=== PATIENT | male | born 1960 | race Caucasian/White ===

== ENCOUNTER → 2017-09-16 07:59 | Outpatient (POV) | payer BC, SELFPAY | PROVIDERS: Family Provider Family Medicine; Visit Provider Physician Assistant | DX: Z00.00 Encounter for general adult medical examination without abnormal findings (principal) ==

== ENCOUNTER → 2017-10-14 08:12 | Outpatient (POV) | payer BC, SELFPAY | PROVIDERS: Family Provider Family Medicine; Visit Provider Physician Assistant | DX: Z00.00 Encounter for general adult medical examination without abnormal findings (principal) ==

== ENCOUNTER → 2018-02-17 09:42 | Outpatient (POV) | payer BC, SELFPAY | PROVIDERS: Visit Provider Physician Assistant | DX: Z00.00 Encounter for general adult medical examination without abnormal findings (principal) ==

== ENCOUNTER → 2018-04-08 08:25 | Outpatient (POV) | payer BC, SELFPAY | PROVIDERS: Visit Provider Dermatology | DX: Z00.00 Encounter for general adult medical examination without abnormal findings (principal) ==

== ENCOUNTER 2018-05-27 00:48 | Observation (INO) ==
[2018-05-27 01:22] LABS: Basophils # 0.1 K/mm3 (0-0.2); Basophils % 0.6 % (0.1-2.0); Eosinophils # 0.2 K/mm3 (0.0-0.4); Eosinophils % 1.5 % (0.1-12.0); Hematocrit 43.8 % (42.0-52.0); Hemoglobin 14.6 g/dL (14.1-18.0); Lymphocytes # 3.3 K/mm3 (0.7-4.5); Lymphocytes % 33.7 % (10-50); Mean Corpuscular HGB Conc 33.3 g/dL (31.8-35.4); Mean Corpuscular Hemoglobin 29.2 pg (27.0-31.2); Mean Corpuscular Volume 87.6 fl (80-94); Mean Platelet Volume 8.6 fl (7.4-10.4); Monocytes # 0.5 K/mm3 (0.1-1.0); Monocytes % 4.8 % (1.7-9.3); Neutrophils # 5.9 K/mm3 (1.8-7.8); Neutrophils % 59.4 % (37.0-80.0); Platelet Count 210 K/mm3 (142-424); Red Cell Distribution Width 13.9 % (11.5-17.5); White Blood Count 9.9 K/mm3 (4.8-10.8)
--- NOTE | 2018-05-27 01:37 | Emergency Department Note ---
ED Disposition Clinical Impression: Chest pain Qualifiers: Chest pain type: precordial pain Qualified Code(s): R07.2 - Precordial pain Disposition: Admitted as Observation Condition on Discharge: Good Referrals: Provider,Referral, [Primary Care Provider] - - Critical Care Critical Care Time: No Attestation: On 05/27/18, the high probability of a clinically significant, sudden or life threatening deterioration of the following system(s) required my full and direct attention, intervention and personal management. The time I documented below is in addition to time spent performing reported procedures but includes the following listed in this critical care notation. Medical Decision Making - Medical Records Medical records reviewed: Yes: I reviewed the patient's medical records. - Sammy Inquiry Pt receiving controlled substance: No Vital Signs: 05/27/18 00:48 05/27/18 01:44 Temperature 98.4 F Temperature Source Oral Pulse Rate [Right Radial] 78 71 Respiratory Rate 16 20 Blood Pressure [Right Arm] 191/119 H 143/87 H Blood Pressure Mean [Right Arm] 143 105 02 Sat by Pulse Oximetry 100 96 - Lab Data Lab results reviewed: Yes: I reviewed the patient's lab results. Lab Results 05/27/18 00:55: WBC 9.9, RBC 5.00, Hgb 14.6, Hct 43.8, MCV 87.6, MCH 29.2, MCHC 33.3, RDW 13.9, Plt Count 210, MPV 8.6, Neut % (Auto) 59.4, Lymph % (Auto) 33.7, [place] % (Auto) 4.8, Eos % (Auto) 1.5, Baso % (Auto) 0.6, Neut # (Auto) 5.9, Lymph # (Auto) 3.3, [place] # (Auto) 0.5, Eos # (Auto) 0.2, Baso # (Auto) 0.1 05/27/18 00:55: Sodium 140, Potassium 3.7, Chloride 103, Carbon Dioxide 27, Anion Gap 13.7, BUN 11, Creatinine 0.91, Estimated Creat Clear 109, Estimated GFR 86, Est GFR ( Amer) 105, Glucose 122 H, Calcium 8.6, Troponin I < 0.02 Result diagrams: 05/27/18 00:55 05/27/18 00:55 Orders (Tests/Meds): ED MEDICATIONS Discontinued Medications Generic Name Dose Route Start Last Admin Trade Name Antonio PRN Reason Stop Dose Admin Aspirin 324 mg 05/27/18 00:54 05/27/18 01:01 Aspirin 81mg Chewable Tablet PO 05/27/18 00:55 324 mg ONCE ONE Administration Nitroglycerin 0.4 mg 05/27/18 00:54 05/27/18 01:01 Nitrostat 0.4mg Sl Tablet SL 05/27/18 00:55 0.4 mg ONCE ONE Administration ORDERS Category Date Time Status XR chest 2V Stat Exams 05/27/18 00:54 Taken - Radiology Data #1 Image(s): Chest Image Reviewed: Yes I reviewed the patient's radiology image Preliminary Findings: Normal/NAD - ECG Data Tracing #1 I reviewed this ECG and interpreted as documented below: Normal Sinus Rhythm: Yes Ischemic changes: non-specific ST-T wave changes - Physician Consults Physician Consulted: lex Reason -: Admission Chest Pain HPI - General Chief Complaint: Chest Pain Stated Complaint: chest pain Time Seen by Provider: 05/27/18 00:50 Mode of Arrival: Family Vehicle Source of Information: Patient, Spouse, Medical Record Limitations: No Limitations Description of Symptoms (Recalled from ER Triage Doc. by RN): pt states he has had abd discomfort for the past 2 days. pt states that he thought he had "gas." pt states that tonight he began having chest pain that radiates into his left arm and into his back. - History of Present Illness HPI narrative: pt with acute onset of lt upper ext pain tonight - no def chest pain - lasting few hrs - no known ht dis MD complaint: chest pain indicative of cardiac Onset (ago): hour(s) Duration: now resolved Activity at onset: during rest Pain location: left chest Severity: moderate Quality: heaviness Risk Factors for CAD: Hypertension, Family Hx of CAD Treatments prior to or on arrival for Cardiac Chest Pain: none - MAO Score Non-Stemi Age of patient: Less than 65 yrs Number of risk factors for CAD: Presence of 3 or more Prior coronary artery stenosis(seen in coronary angiography): Less than 50% ST-Segment deviation on ECG (more than 1 min): Absent Prior aspirin intake: No ASA in the last 7 days Severe anginal chest pain: No or one episode in last 24 hours Elevated cardiac markers(CK-MB or troponin): Absent Non-Stemi Risk Score: 1 - Related Data Home Medications Medication Instructions Recorded Confirmed Atorvastatin Calcium [Atorvastatin 40 mg PO DAILY 05/27/18 05/27/18 40mg Tab] Allergies Allergy/AdvReac Type Severity Reaction Status Date / Time From REGLAN Allergy Unknown BURNING Uncoded 06/18/17 14:26 UP,SKIN CRAWLING,ANXIETY ATTACK SULFA (sulfonamide) Allergy Unknown Uncoded 06/18/17 14:26 [facility] History I have reviewed the patient's past medical history: Yes Medical History: Denies:: Cancer, Diabetes Mellitus Type 1, Diabetes Mellitus Type 2, MRSA Laterality Cases: Bilateral: Tonsillectomy Amputation: No - Social History Smoking Status: Never smoker Alcohol Intake: never - Psychiatric History Expresses thoughts of harming self/others: None Suicide Plan Description: No Plan ROS Obtained: Yes All systems reviewed & no additional complaints - Constitutional Constitutional: Denies fever(s) - Eyes Eyes: Denies blurry vision - ENT Ears, Nose, Mouth, and Throat: Denies sore throat - Cardiovascular Cardiovascular: Reports chest pain - Respiratory Respiratory: No cough - Gastrointestinal Gastrointestingal: Reports: belching. Denies: abdominal pain - Genitourinary Male Genitourinary: Denies hematuria - Musculoskeletal Musculoskeletal: Denies joint pain - Integumentary/Breasts Skin/Breast: Denies rash - Neurologic Neurologic: Denies seizure-like activity Physical Exam - General General appearance: alert - Head Head exam: normocephalic - Eye Eye exam: Present: PERRL, EOMI - ENT ENT exam: Present: mucous membranes moist - Neck Neck exam: Present: trachea midline - Respiratory Respiratory exam: Absent: respiratory distress - Cardiovascular Cardiovascular exam: Present: regular rate, systolic murmur - Abdominal Exam Abdominal exam: Present: soft - Extremities Exam Extremities exam: Absent: calf tenderness - Neurological Exam Neurological exam: Present: alert, oriented X3, CN II-XII intact - Psychiatric Psychiatric exam: Present: normal affect - Skin Skin exam: Absent: rash
[2018-05-27 01:47] LABS: Anion Gap 13.7 mEq/L (5-15); Blood Urea Nitrogen 11 mg/dL (7-18); Calcium 8.6 mg/dL (8.5-10.1); Carbon Dioxide 27 mmol/L (21.0-32.0); Chloride 103 mmol/L (98-107); Glucose 122 mg/dL (74-106); Potassium 3.7 mmoL/L (3.5-5.1); Sodium 140 mmol/L (136-145)
[2018-05-27 06:01] LABS: Basophils % 0.4 % (0.1-2.0); Eosinophils # 0.1 K/mm3 (0.0-0.4); Eosinophils % 1.5 % (0.1-12.0); Hematocrit 41.7 % (42.0-52.0); Hemoglobin 13.8 g/dL (14.1-18.0); Lymphocytes # 2.8 K/mm3 (0.7-4.5); Lymphocytes % 35.9 % (10-50); Mean Corpuscular Hemoglobin 28.9 pg (27.0-31.2); Mean Corpuscular Volume 87.6 fl (80-94); Mean Platelet Volume 8.5 fl (7.4-10.4); Monocytes # 0.4 K/mm3 (0.1-1.0); Monocytes % 4.5 % (1.7-9.3); Neutrophils # 4.5 K/mm3 (1.8-7.8); Neutrophils % 57.8 % (37.0-80.0); Platelet Count 188 K/mm3 (142-424); Red Blood Count 4.76 M/mm3 (4.60-6.20); Red Cell Distribution Width 13.7 % (11.5-17.5); White Blood Count 7.8 K/mm3 (4.8-10.8)
[2018-05-27 06:16] LABS: Anion Gap 11.1 mEq/L (5-15); Calcium 8.6 mg/dL (8.5-10.1); Chol/HDL Ratio 3.2 (1-3.5); Potassium 4.1 mmoL/L (3.5-5.1)
--- NOTE | 2018-05-27 07:10 | Pharmacy Consult Notes ---
[facility] Pharmacy VTE Monitoring - Patient Demographics Admission date: 05/27/18 Report Date: 05/27/18 Time: 07:10 Allergies/Adverse Reactions: Patient Allergies From REGLAN Allergy (Unknown, Uncoded 06/18/17 14:26) BURNING UP,SKIN CRAWLING,ANXIETY ATTACK SULFA (sulfonamide) Allergy (Unknown, Uncoded 06/18/17 14:26) Height: 1.7 m Weight: 81.647 kg Patient Problems: Current Active Problems Chest pain (Acute) - VTE Risk Labs: VTE Related Lab Results Hgb 13.8 g/dL (14.1-18.0) L 05/27/18 05:35 Hct 41.7 % (42.0-52.0) L 05/27/18 05:35 Plt Count 188 K/mm3 (142-424) 05/27/18 05:35 BUN 10 mg/dL (7-18) 05/27/18 05:35 Creatinine 0.85 mg/dL (0.70-1.30) 05/27/18 05:35 Estimated Creat Clear 113 mL/min (50-200) 05/27/18 05:35 Was VTE Risk Assessment Performed: Yes VTE Score: 3 VTE Risk Level: Low Risk - Prophylaxis VTE Prophylaxis Ordered?: Yes Types of VTE Prophylaxis: TEDS Knee High Location of Applied Device: Bilateral Lower Extremeties - VTE Diagnosis Confirmed Treatment or plan recommended: Continue Current Treatment
--- NOTE | 2018-05-27 08:13 | History & Physical Report ---
*Admission Date: 05/27/18 <Bea Nelson - 05/27/18 08:13> *Chief complaint: Chest pain <Bea Nelson - 05/27/18 08:13> *History of present illness: Mr. Chen is a 57-year-old male with a history of diverticulosis with hemicolectomy, prostatitis, and hyperlipidemia who presented to [facility] emergency after experiencing left anterior chest discomfort radiating down the left arm. He describes starting to not feel well Thanks day with increase in gas and bloating. His bowels did move and he was able to pass gas and then did feel better the following days. On 05/24/2018 began to feel worse when his bowels would not move. This progressed the following day after eating spaghetti. By 05/26/2018 his bowels had moved and he did feel better. Last p.m. the bloating increase pushing up on the left side of his chest wall and into his chest and radiating down to the arm. At this time he decided to come to the emergency for evaluation. In the emergency room his blood pressure was quite elevated. After application of Nitropaste the blood pressure did improve and his bowels did move. He began to feel better. He was admitted for further evaluation and treatment with a cardiology consult. This a.m. patient does feel better. His bowels have moved several times and he continues to pass flatus with frequent belching. He has had no further left anterior chest discomfort or arm pain. He denies shortness of breath and palpitations. He has had no nausea or vomiting. He denies fever or any upper respiratory signs or symptoms. Cardiology has seen patient. Nitropaste was removed. He will have a stress test today. <Bea Nelson - 05/27/18 09:27> [facility] History Medical History: Reports:: Gastroesophageal Reflux Disease(GERD) Denies:: Atherosclerotic Heart Disease, Cancer, Chronic Obstructive Pulmonary Disease (COPD), Coronary Artery Disease, Cerebrovascular Accident, Diabetes Mellitus Type 1, Diabetes Mellitus Type 2, MRSA, Seizures <Bea Nelson - 05/27/18 09:27> Other Medical History: Reports: Arthritis, Blood Transfusion Reaction. Denies: Hypothyroidism <Bea Nelson 05/27/18 09:27> Laterality Cases: Bilateral: Tonsillectomy <Bea Nelson 05/27/18 08:13> Other Surgeries: Yes: Colonoscopy, Colon Resection, Hernia Repair (x2) <Bea Nelson 05/27/18 08:13> Amputation: No <Bea Nelson 05/27/18 08:13> Comment: Left eye surgery 1972; Lasix surgery 1999; colonoscopy 2017 <Bea Nelson 05/27/18 09:27> - *Social History Educational Level: Completed Graduate School <Bea Nelson 05/27/18 08:13> Smoking Status: Never smoker <Bea Nelson 05/27/18 08:13> Alcohol Intake: former <Bea Nelson 05/27/18 08:13> Alcohol Intake Frequency:: holidays/special occasions only <Bea Nelson 05/27/18 08:13> Occupational Status: employed <Bea Nelson 05/27/18 08:13> Housing: house <Bea Nelson 05/27/18 08:13> Household Members: spouse <Bea Nelson 05/27/18 08:13> - Psychiatric History Expresses thoughts of harming self/others: None <Bea Nelson 05/27/18 08:13> Suicide Plan Description: No Plan <Bea Nelson 05/27/18 08:13> *Family Hx:: Cancer, Hypertension <Bea Nelson 05/27/18 08:13> Comment: Paternal grandfather had a blood clot <Bea Nelson 05/27/18 09:27> Review of Systems - Constitutional Denies fever(s), Denies headache(s), Denies lack of energy <OmarBea Kraus 05/27/18 09:27> - ENT Denies ear pain, Denies headache(s), Denies sore throat <OmarBea 05/27/18 09:27> - *Cardiovascular Reports chest pain, Denies shortness of breath, Denies leg swelling <OmarBea Nayana 05/27/18 09:27> - *Respiratory Denies chest congestion, Denies cough, Denies shortness of breath <NelsonBea 05/27/18 09:27> - *Gastrointestinal Reports abdominal pain, Reports belching, Reports bloating, Reports change in jose wel habits, Reports constipation, Reports loose stools, Reports heartburn, Reports excessive passing of gas, Denies vomiting blood, Denies bright, red blood in stools, Denies black, tarry stools, Denies nausea, Denies vomiting <Bea Nelson 05/27/18 09:27> - *Genitourinary Denies difficulty urinating <NelsonBea - 05/27/18 09:27> - *Musculoskeletal Denies abnormal walking, Denies joint pain <NelsonBea 05/27/18 09:27> - *Neurologic Denies dizziness, Denies headache(s), Denies seizure-like activity <OmarBea 05/27/18 09:27> Meds Home Medications Medication Instructions Recorded Confirmed Type Atorvastatin Calcium [Atorvastatin 40 mg PO HS 05/27/18 05/27/18 History 40mg Tab] <Bhavik Saravia - 05/27/18 09:59> Allergies Allergy/AdvReac Type Severity Reaction Status Date / Time From REGLAN Allergy Unknown BURNING Uncoded 06/18/17 14:26 UP,SKIN CRAWLING,ANXIETY ATTACK SULFA (sulfonamide) Allergy Unknown Uncoded 06/18/17 14:26 <Bhavik Saravia - 05/27/18 09:59> Exam Vital signs and Labs for Last 24 Hours: Temp Pulse Resp BP Pulse Ox 97.4 F L 61 18 137/80 96 05/27/18 08:00 05/27/18 08:00 05/27/18 08:00 05/27/18 08:00 05/27/18 08:00 Laboratory Results - last 24 hr 05/27/18 00:55: WBC 9.9, RBC 5.00, Hgb 14.6, Hct 43.8, MCV 87.6, MCH 29.2, MCHC 33.3, RDW 13.9, Plt Count 210, MPV 8.6, Neut % (Auto) 59.4, Lymph % (Auto) 33.7, [place] % (Auto) 4.8, Eos % (Auto) 1.5, Baso % (Auto) 0.6, Neut # (Auto) 5.9, Lymph # (Auto) 3.3, [place] # (Auto) 0.5, Eos # (Auto) 0.2, Baso # (Auto) 0.1 05/27/18 00:55: Sodium 140, Potassium 3.7, Chloride 103, Carbon Dioxide 27, Anion Gap 13.7, BUN 11, Creatinine 0.91, Estimated Creat Clear 109, Estimated GFR 86, Est GFR ( Amer) 105, Glucose 122 H, Calcium 8.6, Troponin I < 0.02 05/27/18 05:35: Troponin I < 0.02 05/27/18 05:35: WBC 7.8, RBC 4.76, Hgb 13.8 L, Hct 41.7 L, MCV 87.6, MCH 28.9, MCHC 33.0, RDW 13.7, Plt Count 188, MPV 8.5, Neut % (Auto) 57.8, Lymph % (Auto) 35.9, [place] % (Auto) 4.5, Eos % (Auto) 1.5, Baso % (Auto) 0.4, Neut # (Auto) 4.5, Lymph # (Auto) 2.8, [place] # (Auto) 0.4, Eos # (Auto) 0.1, Baso # (Auto) 0.0 05/27/18 05:35: Sodium 141, Potassium 4.1, Chloride 105, Carbon Dioxide 29, Anion Gap 11.1, BUN 10, Creatinine 0.85, Estimated Creat Clear 113, Estimated GFR 94, Est GFR ( Amer) 113, Glucose 113 H, Calcium 8.6, Triglycerides 164, Cholesterol 113 L, LDL Cholesterol 45, VLDL Cholesterol 33, HDL Cholesterol 35, Cholesterol/HDL Ratio 3.2 05/27/18 08:30: Troponin I < 0.02 <Bhavik Saravia - 05/27/18 09:59> Temp Pulse Resp BP Pulse Ox 97.4 F L 60 18 140/77 96 05/27/18 03:00 05/27/18 03:13 05/27/18 03:00 05/27/18 03:00 05/27/18 03:30 Laboratory Results - last 24 hr 05/27/18 00:55: WBC 9.9, RBC 5.00, Hgb 14.6, Hct 43.8, MCV 87.6, MCH 29.2, MCHC 33.3, RDW 13.9, Plt Count 210, MPV 8.6, Neut % (Auto) 59.4, Lymph % (Auto) 33.7, [place] % (Auto) 4.8, Eos % (Auto) 1.5, Baso % (Auto) 0.6, Neut # (Auto) 5.9, Lymph # (Auto) 3.3, [place] # (Auto) 0.5, Eos # (Auto) 0.2, Baso # (Auto) 0.1 05/27/18 00:55: Sodium 140, Potassium 3.7, Chloride 103, Carbon Dioxide 27, Anion Gap 13.7, BUN 11, Creatinine 0.91, Estimated Creat Clear 109, Estimated GFR 86, Est GFR ( Amer) 105, Glucose 122 H, Calcium 8.6, Troponin I < 0.02 05/27/18 05:35: Troponin I < 0.02 05/27/18 05:35: WBC 7.8, RBC 4.76, Hgb 13.8 L, Hct 41.7 L, MCV 87.6, MCH 28.9, MCHC 33.0, RDW 13.7, Plt Count 188, MPV 8.5, Neut % (Auto) 57.8, Lymph % (Auto) 35.9, [place] % (Auto) 4.5, Eos % (Auto) 1.5, Baso % (Auto) 0.4, Neut # (Auto) 4.5, Lymph # (Auto) 2.8, [place] # (Auto) 0.4, Eos # (Auto) 0.1, Baso # (Auto) 0.0 05/27/18 05:35: Sodium 141, Potassium 4.1, Chloride 105, Carbon Dioxide 29, Anion Gap 11.1, BUN 10, Creatinine 0.85, Estimated Creat Clear 113, Estimated GFR 94, Est GFR ( Amer) 113, Glucose 113 H, Calcium 8.6, Triglycerides 164, Cholesterol 113 L, LDL Cholesterol 45, VLDL Cholesterol 33, HDL Cholesterol 35, Cholesterol/HDL Ratio 3.2 <Bea Nelson - 05/27/18 08:13> I & O for Last 24 hours: Intake & Output 05/24/18 05/25/18 05/26/18 05/27/18 11:59 11:59 11:59 11:59 Intake Total 0 / 0 Balance 0 / 0 Weight 180 lb <Bhavik Saravia - 05/27/18 09:59> Intake & Output 05/24/18 05/25/18 05/26/18 05/27/18 11:59 11:59 11:59 11:59 Weight 180 lb <Bea Nelson - 05/27/18 08:13> Radiology Reports for the Last 24 Hours: 05/27/2018 chest x-ray IMPRESSION: Right perihilar opacity which may be due to underlying infiltrate/pneumonia. Suggest follow-up until clear as a lung nodule could also cause this appearance Left lower lobe and perihilar atelectasis <Bea Nelson 05/27/18 09:27> - Constitutional no acute distress <Bea Nelson 05/27/18 09:27> Comments: Appears comfortable lying in bed <Bea Nelson 05/27/18 09:27> - *Routine HEENT Exam Head: Present: normocephalic, atraumatic <Bea Nelson 05/27/18 09:27> Eye: Present: PERRL. Absent: conjunctival icterus, scleral injection <Bea Nelson 05/27/18 09:27> ENT: Present: mucous membranes moist, oropharynx clear, nares patent <Bea Nelson 05/27/18 09:27> - *Routine Neck Exam Present: supple, full ROM. Absent: carotid bruit, lymphadenopathy, thyromegaly <Bea Nelson 05/27/18 09:27> - *Routine Respiratory Exam Present: CTA bilaterally (Anteriorly and posteriorly) <Bea Nelson 05/27/18 09:27> - *Routine Cardiovascular Exam Present: RRR <Bea Nelson 05/27/18 09:27> - *Routine Abdominal Exam Present: soft, tenderness, distended <Bea Nelson 05/27/18 09:27> Comments: Hyperactive bowel sounds <Bea Nelson 05/27/18 09:27> - *Routine Extremities Exam Absent: edema, calf tenderness <Bea Nelson 05/27/18 09:27> - *Routine Neurological Exam Present: alert, oriented X3 <Bea Nelson 05/27/18 09:27> Assessment and Plan (1) Chest pain Current visit: Yes Status: Acute Qualifiers: Chest pain type: precordial pain Qualified Code(s): R07.2 - Precordial pain Category: Medical Code(s): R07.9 - Chest pain, unspecified (2) Abdominal pain Current visit: Yes Status: Acute Category: Medical Code(s): R10.9 - Unspecified abdominal pain (3) Hyperlipidemia Current visit: Yes Status: Chronic Category: Medical Code(s): E78.5 - Hyperlipidemia, unspecified (4) Diverticulosis Current visit: Yes Status: Chronic Category: Medical Code(s): K57.90 - Diverticulosis of intestine, part unspecified, without perforation or abscess without bleeding <Bhavik Saravia 05/27/18 09:59> (1) Chest pain Current visit: Yes Status: Acute Qualifiers: Chest pain type: precordial pain Qualified Code(s): R07.2 - Precordial pain Category: Medical Code(s): R07.9 - Chest pain, unspecified (2) Abdominal pain Current visit: Yes Status: Acute Category: Medical Code(s): R10.9 - Unspecified abdominal pain (3) Hyperlipidemia Current visit: Yes Status: Chronic Category: Medical Code(s): E78.5 - Hyperlipidemia, unspecified (4) Diverticulosis Current visit: Yes Status: Chronic Category: Medical Code(s): K57.90 - Diverticulosis of intestine, part unspecified, without perforation or abscess without bleeding <Bea Nelson 05/27/18 09:08> - Assessment and plan all Dx Assessment and Plan for all problems:: Saw patient, agree with above note. <Bhavik Saravia 05/27/18 09:59> Cardiology has seen patient and will have a stress test today. <Bea Nelson 05/27/18 09:27>
--- NOTE | 2018-05-27 08:16 | Consult Report ---
Addendum entered and electronically signed by MARYLU Jackson 05/27/18 13:33: Pt exercised on a brooke protocol for just over 7 min to beyond target HR without chest pain or EKG changes. OK from a Cardiology standpoint for discharge home. Follow up in 2 wks. Original Note: History of Present Illness Consult date: 05/27/18 Requesting physician: Bhavik Saravia Consult reason: chest pain Chief complaint: Abdominal and chest pain, HTN Additional Medical History:: 1. History of partial colectomy secondary to diverticulosis 2. History of hyperlipidemia History of present illness: 57-year-old white male with history of partial colectomy secondary to diverticulosis and long-term short of hyperlipidemia admitted through the emergency department for increasing abdominal pain resulting in chest discomfort and left arm numbness. Patient has had recurrent abdominal discomfort since his colectomy in the past. However his usual remedies to alleviate the PIP of gas did not work resulting in increased anxiety and discomfort. Patient's blood pressure in the emerge department was noted to be 190/120. He was started on nitroglycerin paste and given nitroglycerin tablets start with with some improvement in blood pressure and discomfort. Patient relates about 2:30 this morning he began passing gas with significant improvement in symptoms. He denies any history of exertional chest discomfort, pressure or tightness. No previous cardiac history. Patient denies diabetes, treatment for hypertension or tobacco use. No significant family history of heart disease. EKG is sinus rhythm and normal. Troponins are returned normal. Cardiology consulted for evaluation recommendation. [facility] History Medical History: Denies:: Cancer, Diabetes Mellitus Type 1, Diabetes Mellitus Type 2, MRSA Other Medical History: Reports: Arthritis, Blood Transfusion Reaction Laterality Cases: Bilateral: Tonsillectomy Other Surgeries: Yes: Colonoscopy, Colon Resection, Hernia Repair (x2) Amputation: No - *Social History Educational Level: Completed Graduate School Smoking Status: Never smoker Alcohol Intake: former Alcohol Intake Frequency:: holidays/special occasions only Occupational Status: employed Housing: house Household Members: spouse - Psychiatric History Expresses thoughts of harming self/others: None Suicide Plan Description: No Plan *Family Hx:: Cancer, Hypertension Meds Home Medications Medication Instructions Recorded Confirmed Type Atorvastatin Calcium [Atorvastatin 40 mg PO HS 05/27/18 05/27/18 History 40mg Tab] Allergies Allergy/AdvReac Type Severity Reaction Status Date / Time From REGLAN Allergy Unknown BURNING Uncoded 06/18/17 14:26 UP,SKIN CRAWLING,ANXIETY ATTACK SULFA (sulfonamide) Allergy Unknown Uncoded 06/18/17 14:26 Review of Systems - *Cardiovascular Reports chest pain, Denies shortness of breath with activity - *Respiratory Denies shortness of breath with activity - *Gastrointestinal Reports abdominal pain, Reports belching, Reports bloating - *Musculoskeletal Denies joint pain - *Neurologic Denies seizure-like activity Exam Vital signs and Labs for Last 24 Hours: Temp Pulse Resp BP Pulse Ox 97.4 F L 60 18 140/77 96 05/27/18 03:00 05/27/18 03:13 05/27/18 03:00 05/27/18 03:00 05/27/18 03:30 Laboratory Results - last 24 hr 05/27/18 00:55: WBC 9.9, RBC 5.00, Hgb 14.6, Hct 43.8, MCV 87.6, MCH 29.2, MCHC 33.3, RDW 13.9, Plt Count 210, MPV 8.6, Neut % (Auto) 59.4, Lymph % (Auto) 33.7, [place] % (Auto) 4.8, Eos % (Auto) 1.5, Baso % (Auto) 0.6, Neut # (Auto) 5.9, Lymph # (Auto) 3.3, [place] # (Auto) 0.5, Eos # (Auto) 0.2, Baso # (Auto) 0.1 05/27/18 00:55: Sodium 140, Potassium 3.7, Chloride 103, Carbon Dioxide 27, Anion Gap 13.7, BUN 11, Creatinine 0.91, Estimated Creat Clear 109, Estimated GFR 86, Est GFR ( Amer) 105, Glucose 122 H, Calcium 8.6, Troponin I < 0.02 05/27/18 05:35: Troponin I < 0.02 05/27/18 05:35: WBC 7.8, RBC 4.76, Hgb 13.8 L, Hct 41.7 L, MCV 87.6, MCH 28.9, MCHC 33.0, RDW 13.7, Plt Count 188, MPV 8.5, Neut % (Auto) 57.8, Lymph % (Auto) 35.9, [place] % (Auto) 4.5, Eos % (Auto) 1.5, Baso % (Auto) 0.4, Neut # (Auto) 4.5, Lymph # (Auto) 2.8, [place] # (Auto) 0.4, Eos # (Auto) 0.1, Baso # (Auto) 0.0 05/27/18 05:35: Sodium 141, Potassium 4.1, Chloride 105, Carbon Dioxide 29, Anion Gap 11.1, BUN 10, Creatinine 0.85, Estimated Creat Clear 113, Estimated GFR 94, Est GFR ( Amer) 113, Glucose 113 H, Calcium 8.6, Triglycerides 164, Cholesterol 113 L, LDL Cholesterol 45, VLDL Cholesterol 33, HDL Cholesterol 35, Cholesterol/HDL Ratio 3.2 I & O for Last 24 hours: Intake & Output 05/24/18 05/25/18 05/26/18 05/27/18 11:59 11:59 11:59 11:59 Weight 180 lb - *Routine Neck Exam Present: supple. Absent: JVD, carotid bruit - *Routine Respiratory Exam Present: CTA bilaterally. Absent: accessory muscle use, rales, rhonchi, wheezes - *Routine Cardiovascular Exam Present: RRR. Absent: murmur, gallop, rubs - *Routine Abdominal Exam Present: soft. Absent: tenderness, distended, guarding - *Routine Extremities Exam Absent: edema, calf tenderness - *Routine Neurological Exam Present: alert, oriented X3, moving all extremities Assessment and Plan (1) Chest pain Current visit: Yes Status: Acute Qualifiers: Chest pain type: precordial pain Qualified Code(s): R07.2 - Precordial pain Category: Medical Code(s): R07.9 - Chest pain, unspecified (2) Hyperlipidemia Current visit: Yes Status: Acute Category: Medical Code(s): E78.5 - Hyperlipidemia, unspecified - Assessment and plan all Dx Assessment and Plan for all problems:: 1. Preliminary echocardiogram report shows normal left ventricular size and function with no significant valvular heart disease. Study was limited due to patient's claustrophobia and abdominal discomfort. 2. In light of the patient's normal troponins and normal EKG would recommend proceeding with a regular Brooke protocol treadmill today. If no ischemic changes then patient could be discharged home. We will also observe the patient's blood pressure during exercise and consider hypertensive treatment if needed.
--- NOTE | 2018-05-27 15:55 | Discharge Summary ---
General - General Admission date:: 05/27/18 Discharge date: 05/27/18 HPI HPI: Mr. Chen is a 57-year-old male with a history of diverticulosis with hemicolectomy, prostatitis, and hyperlipidemia who presented to [facility] emergency after experiencing left anterior chest discomfort radiating down the left arm. He describes starting to not feel well Thanks day with increase in gas and bloating. His bowels did move and he was able to pass gas and then did feel better the following days. On 05/24/2018 began to feel worse when his bowels would not move. This progressed the following day after eating spaghetti. By 05/26/2018 his bowels had moved and he did feel better. Last p.m. the bloating increase pushing up on the left side of his chest wall and into his chest and radiating down to the arm. At this time he decided to come to the emergency for evaluation. In the emergency room his blood pressure was quite elevated. After application of Nitropaste the blood pressure did improve and his bowels did move. He began to feel better. He was admitted for further evaluation and treatment with a cardiology consult. This a.m. patient does feel better. His bowels have moved several times and he continues to pass flatus with frequent belching. He has had no further left anterior chest discomfort or arm pain. He denies shortness of breath and palpitations. He has had no nausea or vomiting. He denies fever or any upper respiratory signs or symptoms. Cardiology has seen patient. Nitropaste was removed. He will have a stress test today. Hospital Course Hospital Course: The preliminary echocardiogram report showed a normal left ventricular size and function with no significant valvular heart disease. The patient exercised on a brooke protocol for just over 7 min to beyond target HR without chest pain or EKG changes. He was stable to be discharged home and will f/u in 2 weeks with cardiology. Objective Vital signs: Temp Pulse Resp BP Pulse Ox 98.5 F 69 16 136/82 99 05/27/18 11:55 05/27/18 11:55 05/27/18 11:55 05/27/18 11:55 05/27/18 11:55 Narrative: - Constitutional no acute distress Comments: Appears comfortable lying in bed - *Routine HEENT Exam Head: Present: normocephalic, atraumatic Eye: Present: PERRL. Absent: conjunctival icterus, scleral injection ENT: Present: mucous membranes moist, oropharynx clear, nares patent - *Routine Neck Exam Present: supple, full ROM. Absent: carotid bruit, lymphadenopathy, thyromegaly - *Routine Respiratory Exam Present: CTA bilaterally (Anteriorly and posteriorly) - *Routine Cardiovascular Exam Present: RRR - *Routine Abdominal Exam Present: soft, tenderness, distended Comments: Hyperactive bowel sounds - *Routine Extremities Exam Absent: edema, calf tenderness - *Routine Neurological Exam Present: alert, oriented X3 Results Labs on day of discharge: Labs from last 24 hours 05/27/18 05/27/18 05/27/18 08:30 05:35 05:35 WBC 7.8 RBC 4.76 Hgb 13.8 L Hct 41.7 L MCV 87.6 MCH 28.9 MCHC 33.0 RDW 13.7 Plt Count 188 MPV 8.5 Neut % (Auto) 57.8 Lymph % (Auto) 35.9 [place] % (Auto) 4.5 Eos % (Auto) 1.5 Baso % (Auto) 0.4 Neut # (Auto) 4.5 Lymph # (Auto) 2.8 [place] # (Auto) 0.4 Eos # (Auto) 0.1 Baso # (Auto) 0.0 Sodium 141 Potassium 4.1 Chloride 105 Carbon Dioxide 29 Anion Gap 11.1 BUN 10 Creatinine 0.85 Estimated Creat Clear 113 Estimated GFR 94 Est GFR ( Amer) 113 Glucose 113 H Calcium 8.6 Troponin I < 0.02 Triglycerides 164 Cholesterol 113 L LDL Cholesterol 45 VLDL Cholesterol 33 HDL Cholesterol 35 Cholesterol/HDL Ratio 3.2 05/27/18 05/27/18 05/27/18 05:35 00:55 00:55 WBC 9.9 RBC 5.00 Hgb 14.6 Hct 43.8 MCV 87.6 MCH 29.2 MCHC 33.3 RDW 13.9 Plt Count 210 MPV 8.6 Neut % (Auto) 59.4 Lymph % (Auto) 33.7 [place] % (Auto) 4.8 Eos % (Auto) 1.5 Baso % (Auto) 0.6 Neut # (Auto) 5.9 Lymph # (Auto) 3.3 [place] # (Auto) 0.5 Eos # (Auto) 0.2 Baso # (Auto) 0.1 Sodium 140 Potassium 3.7 Chloride 103 Carbon Dioxide 27 Anion Gap 13.7 BUN 11 Creatinine 0.91 Estimated Creat Clear 109 Estimated GFR 86 Est GFR ( Amer) 105 Glucose 122 H Calcium 8.6 Troponin I < 0.02 < 0.02 Triglycerides Cholesterol LDL Cholesterol VLDL Cholesterol HDL Cholesterol Cholesterol/HDL Ratio DS: Diagnosis - Discharge Diagnosis (1) Chest pain Status: Acute (2) Abdominal pain Status: Acute (3) Hyperlipidemia Status: Chronic (4) Diverticulosis Status: Chronic Discharge Plan - Patient Discharge Instructions ACTIVITY: Continue current activity DIET: continue same diet Additional Instructions: Nursing Diagnosis: Knowledge Deficit Disease/Condition Goal(s): Education of disease process Instruction(s): Follow provider plan/instructions (See attached discharge education) Follow/up with primary care provider as instructed in discharge packet Patient Instructions: DI for Chest Pain - Follow up Plan Follow up with: Bhavik Saravia MD [Primary Care Provider] - 1 week Disposition: Home, Self-Shelter Medications: Home Medications Medication Instructions Recorded Confirmed Type Atorvastatin Calcium [Atorvastatin 40 mg PO HS 05/27/18 05/27/18 History 40mg Tab] Prescriptions/Medication Reconciliation: New Polyethylene Glycol 3350 [Miralax Powder] 17 gm PO DAILY #512 gm Continue Atorvastatin Calcium [Atorvastatin 40mg Tab] 40 mg PO HS
--- NOTE | 2018-05-27 21:45 | Cardiology Report ---
PROCEDURE: 2-D M-mode and color Doppler study INDICATIONS FOR THE TEST: Chest pain + COPD Heart Murmur Tobacco Smoking Palpitations Fatigue Syncope Edema Hypertension Diabetes Mellitus Rheumatic Fever SOB DENG Obesity Hyperlipidemia+ Family History HD Additional History ANXIETY. PT REFUSED THE REST OF EXAM DUE TO ANXIETY PATIENT INFORMATION HEIGHT: 67 WEIGHT:185 GENDER: Male B/P:143/87 2-D/M-MODE INTERPRETATION: 2-D MEASUREMENTS OBSERVED VALUES IN CMS Right Ventricular Dimension (RVDd) 2.2 Interventricular Septum (Thickness)(IVsd) 1.2 Left Ventricular Internal Dimensions(LVIDd) 3.9 Left Ventricular Posterior Wall (Thickness)(LVPWd) 1.1 Aortic Root 3.0 Aortic Cusp Separation 2.0 Left Atrial Dimensions (LAD) 3.5 2D 1. Left atrium is mildly enlarged, left ventricle is normal size, there is mild concentric left ventricular hypertrophy, visually estimated ejection fraction of 55% with no regional wall motion abnormality. 2. The right atrium and right ventricle are normal size and contractility. 3. The aortic valve is minimally thickened and fibrosed, leaflet continue to display mobility. 4. The mitral and tricuspid valve is grossly normal. 5. The pulmonic valve is poorly visualized. 6. No significant pericardial effusion noted. DOPPLER INTERROGATION: Doppler interrogation of the aortic, mitral and tricuspid valvular presence of mild mitral and tricuspid regurgitation, tricuspid regurgitation jet velocity is inadequate for calculation of the right ventricular systolic pressure, grade 1 diastolic dysfunction seen without tissue Doppler evidence of raised left atrial pressure. CONCLUSION: 1. Mildly enlarged left atrium, normal left ventricular size, mild concentric left ventricular hypertrophy, visually estimated ejection fraction 55% with no regional wall motion abnormality, grade 1 diastolic dysfunction seen without tissue Doppler evidence of raised left atrial pressure. 2. Mild mitral and tricuspid regurgitation 3. No significant pericardial effusion noted.
== END 2018-05-27 13:20 | disposition home or self-care (01) ==
LOC: 2ND 00:48 → ER 00:48 → 2ND 03:00
PROVIDERS: ADMIT Family Medicine; ATTEND Family Medicine

== ENCOUNTER → 2021-07-11 10:55 | Outpatient (CLI) | payer BC, SELFPAY | PROVIDERS: Visit Provider Nurse Practitioner | DX: Z20.822 Contact with and (suspected) exposure to COVID-19 (principal) | CPT/HCPCS: C9803; U0003; U0005 ==

== ENCOUNTER → 2022-03-21 14:10 | Outpatient (CLI) | payer BC, SELFPAY ==
[2022-03-21 14:50] LABS: Basophils # 0.1 K/mm3 (0-0.2); Basophils % 1.3 % (0.1-2.0); Eosinophils # 0.4 K/mm3 (0.0-0.4); Eosinophils % 3.5 % (0.1-12.0); Hematocrit 46.5 % (42.0-52.0); Hemoglobin 15.2 g/dL (14.1-18.0); Lymphocytes # 1.7 K/mm3 (0.7-4.5); Mean Corpuscular HGB Conc 32.6 g/dL (31.8-35.4); Mean Corpuscular Hemoglobin 29.9 pg (27.0-31.2); Mean Corpuscular Volume 91.7 fl (80-94); Mean Platelet Volume 9.7 fl (7.4-10.4); Monocytes # 0.5 K/mm3 (0.1-1.0); Monocytes % 4.4 % (1.7-9.3); Neutrophils # 7.9 K/mm3 (1.8-7.8); Neutrophils % 74.9 % (37.0-80.0); Platelet Count 209 K/mm3 (142-424); Red Blood Count 5.07 M/mm3 (4.60-6.20); Red Cell Distribution Width 13.9 % (11.5-17.5); White Blood Count 10.6 K/mm3 (4.8-10.8)
== END ==
PROVIDERS: PCP Family Medicine; Visit Provider Nurse Practitioner Family
DX: Z20.822 Contact with and (suspected) exposure to COVID-19 (principal)
CPT/HCPCS: 36415; 85025; C9803; U0003; U0005

== ENCOUNTER → 2022-11-20 07:43 | Outpatient (CLI) | payer SELFPAY ==
--- NOTE | 2022-11-20 07:56 | CT_ITS ---
FINAL REPORT TECHNIQUE: Thin section axial images were obtained through the heart and coronary arteries per CT coronary calcium score protocol. This study was performed with techniques to keep radiation doses as low as reasonably achievable (ALARA). Individualized dose reduction techniques using automated exposure control or adjustment of mA and/or kV according to the patient's size were employed. CLINICAL HISTORY: SCREENING FINDINGS: On the axial images, there is calcification within the LAD. This gives a coronary artery calcium score of 17 based on the Agatston scale. This coronary calcium score places the patient within the 36th percentile based on age and gender. The heart is normal in size. There is no pleural or pericardial effusion. Limited evaluation of the lungs reveal no suspicious nodule. IMPRESSION: Coronary artery calcium score of 17 places patient in the 36th percentile based on age and gender. Reviewed, Interpreted and Dictated by Jeramie Covarrubias III, MD Transcribed by Bea Monten[place] Authenticated and [facility]
== END ==
PROVIDERS: PCP Family Medicine; Visit Provider Family Medicine
DX: Z13.6 Encounter for screening for cardiovascular disorders (principal)
CPT/HCPCS: 75571

== ENCOUNTER 2024-12-24 14:09 | Outpatient (CLI) | payer BC, SELFPAY ==
--- OUTSIDE RECORDS SUMMARY | 2023-12-19 05:00 | XMS_ITS ---
Author Organization [facility] Address [address] [place] [id number] Care Team Providers Care Refrigerator Assembler Name Role Phone Bhavik Saravia Primary Care Provider Allergies Allergen (clinical drug ingredient) Drug/Non Drug Allergy documented on EMR Reaction Allergy Type Onset Date Status Substance with sulfonamide structure and antibacterial mechanism of action (substance) Sulfa Antibiotics Unknown Drug Allergy Active Results Component Value Reference Range Notes Glucose (In-House) Reviewed date:12/20/2023 08:40:39 AM Interpretation:134 Performing Lab: Notes/Report: 134 blood glucose 134 74 - 106 mg/dL Glycohemoglobin A1c (in hous e) Reviewed date:12/20/2023 08:40:39 AM Interpretation:5.2 Normal Performing Lab: Notes/Report: 5.2 Normal glycohemoglobin 5.2% 5 - 6.5 % P-Comprehensive Metabolic Pa david (CMP) Reviewed date:12/20/2023 08:40:39 AM Interpretation:co2-21, gluc 122 Performing Lab: Notes/Report: Test performed by [employer], [employer] [facility] , [address], [place] [address] Dagoberto Moe MD, Gum Scoring Machine Operator CLIA: [id number] Sodium 138 135-145 mEq/L Potassium 4.2 3.5-5.3 mEq/L Chloride 106 97-108 mEq/L CO2 21 22-32 mEq/L Glucose 122 65-99 mg/dL BUN 13 8-23 mg/dL Creatinine 0.82 0.70-1.30 mg/dL Calcium 9.5 8.6-10.4 mg/dL eGFR by Creatinine 100 >59 mL/min/1.73m2 Protein 6.5 6.0-8.3 g/dL Albumin 4.4 3.5-5.3 g/dL Alkaline Phosphatase 88 40-129 IU/L ALT (SGPT) 25 <5-55 IU/L AST (SGOT) 19 <5-46 IU/L Bilirubin, Total 0.4 <0.2-1.2 mg/dL A/G Ratio 2.1 1.1-2.5 mg/dL P-Lipid Panel Reviewed date:12/20/2023 08:40:39 AM Interpretation:trigs 231, hdl 33 Performing Lab: Notes/Report: Test performed by [employer], [address] , [place] [address] Dagoberto Moe MD, Gum Scoring Machine Operator CLIA: [id number] Cholesterol 132 <200 mg/dL Triglycerides 231 <150 mg/dL HDL Cholesterol 33 >39 mg/dL Cholesterol / HDL Ratio 4.00 0.00-4.99 Ratio Non-HDL Cholesterol 99 <130 mg/dL LDL Cholesterol (Calculation) 53 <130 mg/dL LDL Cholesterol Levels* Less than 100 mg/dL Optimal 100 to 129 mg/dL Near Optimal/ Above Optimal 130 to 159 mg/dL Borderline High 160 to 189 mg/dL High 190 mg/dL and above Very High * Categories as recommended by the 2004 ATPIII guidelines LDL/HDL Ratio 1.6 <3.3 Ratio LDL Cholesterol Patient History Test Date: 11/08/2022 LDL Results: 68 Units: mg/dL % Change: - Test Date: 06/17/2023 LDL Results: 69 Units: mg/dL % Change: +1% Test Date: 12/19/2023 LDL Results: 53 Units: mg/dL % Change: -23% P-PSA Reviewed date:12/20/2023 08:40:39 AM Interpretation: Normal Performing Lab: Notes/Report: [facility] by [facility] , [place] [address] Dagoberto Moe MD, Gum Scoring Machine Operator CLIA: [id number] PSA 0.77 <4.00 ng/mL Please note this is an ultrasensitive PSA assay with a lower limit of detection of 0.014 ng/mL. This test is performed by the [employer] ECLIA methodology. Values obtained with different assay methods or kits cannot be directly compared. P-TSH reflex to FT4 Reviewed date:12/20/2023 08:40:39 AM Interpretation: Normal Performing Lab: Notes/Report: Test performed by [employer] [facility] , [place] [address] Dagoberto Moe MD, Gum Scoring Machine Operator CLIA: [id number] TSH reflex to FT4 2.30 0.43-5.25 mU/L P-Microalbumin/Creatinine, R andom Urine Sample Reviewed date:12/20/2023 08:40:39 AM Interpretation:satisfactory Performing Lab: Notes/Report: Test performed by [employer], [employer] [address] [place] [address] , [address], [place] [address] Dagoberto Moe MD, Gum Scoring Machine Operator CLIA: [id number] Albumin/Creatinine Ratio, Urine See Comment 0-30 ug/mg Unable to calculate Urine Albumin/Creatinine Ratio when urine creatinine or urine albumin fall outside established reportable range. Microalbumin, Urine, Random <0.3 Creatinine, Urine 132.1 REASON FOR VISIT 6 month checkup Medications Medication SIG (Take, Route, Frequency, Duration) Notes Start Date End Date Status Losartan Potassium 50 MG 1 tablet Orally Once a day; Duration: 90 days 12/20/2022 Active Omeprazole 20 MG 1 cap(s) orally once a day; Duration: 30 day(s) Active Lipitor 40 MG 1 tab(s) orally once a day (bedtime); Duration: 90 days Active Famotidine 20 MG 1 tab(s) orally once Active Claritin 10 MG 1 tablet Orally Once a day; Duration: 30 day(s) Active MiraLax 17 GM/SCOOP as directed Orally Active Tylenol Extra Strength 500 MG 2 tab(s) orally every 6 hours Active Ibuprofen 600 MG 1 tab(s) orally ever y 6 hours Active Vital Signs Blood pressure systolic 122 mm Hg 12/19/19 24 Blood pressure diastolic 80 mm Hg 024 Heart Rate 70 /min 12/19/2023 Height 68 in 12/19/2023 Weight 186.6 lbs 12/19/2023 BMI 28.37 kg/m2 12/19/2023 Encounters Encounter Location Date Provider Diagnosis [facility] [address] [facility] [address] [place], [place] [id number] 12/19/2023 Bhavik Bethel Primary hypertension I10 ; Mixed hyperlipidemia E78.2 ; Hypertriglyceridemia E78.1 ; Impaired fasting glucose R73.01 and Prostate cancer screening Z12.5 Assessments Encounter Date Diagnosis (ICD Code) Assessment Notes Treatment Notes Treatment Clinical Notes Section Notes 12/19/2023 Primary hypertension (ICD-10 - I10) 12/19/2023 Mixed hyperlipidemia (ICD-10 - E78.2) 12/19/2023 Hypertriglyceridemia (ICD-10 - E78.1) 12/19/2023 Impaired fasting glu cose (ICD-10 - R73.01) 12/19/2023 Prostate cancer screening (ICD-10 - Z12.5) Plan Of Treatment Medication Medication Name Sig Start Date Stop Date Notes Losartan Potassium 50 MG 1 tablet Orally Once a day; Duration: 90 days 12/20/2022 Lipitor 40 MG 1 tab(s) orally once a day (bedtime); Duration: 90 days Next Appt Details Follow Up: 6 Months, Reason: Provider Name:Bhavik Bahena ry, 06/21/2025 09:15:00 AM, [address], [address], [place], [place], [id number], Progress Notes * LEE CHENDOB:1960 ([age] yo M)Acc No.[id number]:12/19/2023 Progress Notes Patient: LEE TRINIDAD Provider: Alexandra Saravia M.D. :1960 A ge:63 Y S ex:Male Date:12/19/2023 Address:[address] [place] [address] , [place], [id number] Subjective: * Chief Complaints: * 1 . 6 month checkup. * HPI: C ardiology: 63 year old male presents with c/o Blood Pressure Elevated P t here for 6 mo f/u on hypertension, states he is doing well and does not have any concerns. c/o Hyperlipidemia p t is fasting today. * ROS: D ERMATOLOGY: no R heather. n o H angie. G ASTROENTEROLOGY: no N ausea. n o V omiting. U ROLOGY: no D ifficulty urinating. n o B lood in urine. * Medical History: H yperlipidemia, Hypertriglyceridemia, Prostatitis, Diverticulosis, Diverticulitis, Constipation, Impaired Fasting Glucose. * Surgical History: T onsillectomy 1968, LT Eye 1972, Bilateral Lasik Eye 1999, Hemicolectomy secondary to diverticular disease of colon 2010, Colonoscopy 2017. * Hospitalization/Major Diagno stic Procedure: D enies Past Hospitalization. * Family History: F ather: , lung CA. M other: alive 81 yrs. P aternal Grand Father: , blot clot. P aternal Grand Mother: alive. M aternal Grand Father: . M aternal Grand Mother: . P aternal uncle: CA. S iblings: diagnosed with Cancer. 2 brother(s) - healthy. 3 son(s) - healthy. . * Social History: C URRENT TOBACCO USE S moking Status: Patient does NOT smoke. C affeine: yes, frequency:daily-soda. Exercise: yes, walks. Home smoke detector use: yes. Marital Status: . 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 Past smoking status: no. Occup. exposure: none. Recreational drug use: no. Alcohol: no. Travel ouside [place]: no. * Medications: T aking Claritin 10 MG Tablet 1 tablet Orally Once a day , Taking MiraLax 17 GM/SCOOP Powder as directed Orally , Taking Tylenol Extra Strength 500 MG Tablet 2 tab(s) orally every 6 hours , Taking Ibuprofen 600 MG Tablet 1 tab(s) orally every 6 hours , Taking Famotidine 20 MG Tablet 1 tab(s) orally once , Taking Omeprazole 20 MG Capsule Delayed Release 1 cap(s) orally once a day , Taking Lipitor 40 MG Tablet 1 tab(s) orally once a day (bedtime) , Taking Losartan Potassium 50 MG Tablet 1 tablet Orally Once a day , Discontinued Cefdinir 300 MG Capsule 1 cap(s) Orally Two times a day , Discontinued Promethazine-DM 6.25-15 MG/5ML Syrup 5 ml as needed Orally every 6 hrs , Medication List reviewed and reconciled with the patient * Allergies: S ulfa Antibiotics. Objective: * Vitals: W t:186.6, Temp:98.1, BP:122/80, HR:70, Nurse:karson, Ht: 68, BMI:28.37. * Examination: C ardiology: General Appearance: p leasant, NAD. H eart sounds: R RR, normal S1, S2. L ungs: c lear, no rales or wheezes. E xtremities: n o leg edema. P eripheral pulses: 2 plus bilateral. Assessment: * Assessment: 1. P rimary hypertension - I10 (Primary) 2 . M ixed hyperlipidemia - E78.2? 3. H ypertriglyceridemia - E78.1 4 . I mpaired fasting glucose - R73.01 5 . P rostate cancer screening - Z12.5 Plan: * Treatment: Value Reference Range A /G Ratio 2.1 1.1-2.5 - mg/dL * A lbumin 4.4 3.5-5.3 - g/dL * A lkaline Phosphatase 88 40-129 - IU/L * A LT (SGPT) 25 <5-55 - IU/L * A ST (SGOT) 19 <5-46 - IU/L * B ilirubin, Total 0.4 <0.2-1.2 - mg/dL * B UN 13 8-23 - mg/dL * C alcium 9.5 8.6-10.4 - mg/dL * C hloride 106 97-108 - mEq/L * C O2 21 L 22-32 - mEq/L * C reatinine 0.82 0.70-1.30 - mg/dL * G lucose 122 H 65-99 - mg/dL * P otassium 4.2 3.5-5.3 - mEq/L * S odium 138 135-145 - mEq/L * P rotein 6.5 6.0-8.3 - g/dL * e GFR by Creatinine 100 >59 - mL/min/1.73m2 * Carine Bansal 12/20/2023 8:40: 32 AM >See phone encounter ?LAB: P-Microalbumin/Creatinine, Random Urine Sample (Collection Date & Time - 12/19/2023 08:25 AM)?satisfactory* Value Reference Range A lbumin/Creatinine Ratio, Urine See Comment L 0-30 - ug /mg * C reatinine, Urine 132.1 - mg/dL * M icroalbumin, Urine, Random <0.3 - mg/dL * Carine Bansal 12/20/2023 8:40: 32 AM >See phone encounter 2.?Mixed hyperlipidemia? Refill Lipitor Tablet, 40 MG, 1 tab(s), orally, once a day (bedtime), 90 days, 90, Refills 1.?LAB: P-Comprehensive Metabolic Panel (CMP) (Collection Date & Time - 12/19/2023 08:25 AM)?co2-21, gluc 122* Value Reference Range A /G Ratio 2.1 1.1-2.5 - mg/dL * A lbumin 4.4 3.5-5.3 - g/dL * A lkaline Phosphatase 88 40-129 - IU/L * A LT (SGPT) 25 <5-55 - IU/L * A ST (SGOT) 19 <5-46 - IU/L * B ilirubin, Total 0.4 <0.2-1.2 - mg/dL * B UN 13 8-23 - mg/dL * C alcium 9.5 8.6-10.4 - mg/dL * C hloride 106 97-108 - mEq/L * C O2 21 L 22-32 - mEq/L * C reatinine 0.82 0.70-1.30 - mg/dL * G lucose 122 H 65-99 - mg/dL * P otassium 4.2 3.5-5.3 - mEq/L * S odium 138 135-145 - mEq/L * P rotein 6.5 6.0-8.3 - g/dL * e GFR by Creatinine 100 >59 - mL/min/1.73m2 * Carine Bansal 12/20/2023 8:40: 32 AM >See phone encounter ?LAB: P-Lipid Panel (Collection Date & Time - 12/19/2023 08:25 AM)?trigs 231, hdl 33* Value Reference Range C holesterol / HDL Ratio 4.00 0.00-4.99 - Ratio * C holesterol 132 <200 - mg/dL * H DL Cholesterol 33 L >39 - mg/dL * L DL Cholesterol (Calculation) 53 <130 - mg/d L * L DL/HDL Ratio 1.6 <3.3 - Ratio * N on-HDL Cholesterol 99 <130 - mg/dL * T riglycerides 231 H <150 - mg/dL * Carine Bansal 12/20/2023 8:40: 32 AM >See phone encounter ?LAB: P-TSH reflex to FT4 (Collection Date & Time - 12/19/2023 08:25 AM)? Normal* Value Reference Range T SH reflex to FT4 2.30 0.43-5.25 - mU/L * RolfCarine 12/20/2023 8:40: 32 AM >See phone encounter 3.?Hypertriglyceridemia?LAB: P-Lipid Panel (Collection Date & Time - 12/19/2023 08:25 AM)?trigs 231, hdl 33* Value Reference Range C holesterol / HDL Ratio 4.00 0.00-4.99 - Ratio * C holesterol 132 <200 - mg/dL * H DL Cholesterol 33 L >39 - mg/dL * L DL Cholesterol (Calculation) 53 <130 - mg/d L * L DL/HDL Ratio 1.6 <3.3 - Ratio * N on-HDL Cholesterol 99 <130 - mg/dL * T riglycerides 231 H <150 - mg/dL * Carine Bansal 12/20/2023 8:40: 32 AM >See phone encounter 4.?Impaired fasting glucose?LAB: Glucose (In-House) (Collection Date & Time - 12/19/2023)?134* Value Reference Range b lood glucose 134 74 - 106 mg/dL * KartikRubia 12/19/2023 9:58:45 AM > Carine Bansal 12/20/2023 8:40:32 AM >See phone encounter ?LAB: Glycohemoglobin A1c (in house) (Collection Date & Time - 12/19/2023)? 5.2 Normal* Value Reference Range g lycohemoglobin 5.2% 5 - 6.5 % * Rubia Verdugo 12/19/2023 10:05:1 9 AM > Carine Bansal 12/20/2023 8:40:32 AM >See phone encounter 5.?Prostate cancer screening?LAB: P-PSA (Collection Date & Time - 12/19/2023 08:25 AM)?Normal* Value Reference Range P SA 0.77 <4.00 - ng/mL * Carine Bansal 12/20/2023 8:40: 32 AM >See phone encounter * Procedure Codes: 8 2950 GLUCOSE TEST, [address]9937 GLYCATED HEMOGLOBIN TEST, Modifiers: QW * Follow Up: 6 Months * Images: Billing Information: * Visit Code: 94151 Office Visit, Est Pt., Level 4. * Procedure Codes: 28218 GLUCOSE TEST. 29675 GLYCATED HEMOGLOBIN TEST. Modifiers: QW * Electronic signature of Blanca Saravia MD on 12/24/2024 at 02:13 PM EDT Sign off status: Pending * Provider: Alexandra Saravia M.D. Date: 0 12/19/2023 Generated for Sherri ashley/Reginog/eTransmitting on: 12/24/2024 02:13 PM EDT History and Physical Notes * HPI (History of Present Illness) Category Sub-Category Detail Notes Category Not es Cardiology Blood Pressure Elevated Pt here for 6 mo f/u on hypertension, states he is doing well and does not have any concerns Hyperlipidemia pt is fasting today Examination Category Sub-Category Detail Notes Category Not es Cardiology Lungs: clear, no rales or wheezes Heart sounds: RRR, normal S1, S2 Extremities: no leg edema Peripheral pulses: 2 plus bilateral General Appearance: pleasant, NAD
--- OUTSIDE RECORDS SUMMARY | 2024-06-18 05:15 | XMS_ITS ---
Author Organization [facility] Address [address] [place] [id number] Care Team Providers Care Switcher Name Role Phone Bhavik Saravia Primary Care Provider Allergies Allergen (clinical drug ingredient) Drug/Non Drug Allergy documented on EMR Reaction Allergy Type Onset Date Status Substance with sulfonamide structure and antibacterial mechanism of action (substance) Sulfa Antibiotics Unknown Drug Allergy Active Results Component Value Reference Range Notes Glucose (In-House) Reviewed date:06/19/2024 11:42:30 AM Interpretation:138 Performing Lab: Notes/Report: 138 blood glucose 138 74 - 106 mg/dL Glycohemoglobin A1c (in hous e) Reviewed date:06/19/2024 11:42:31 AM Interpretation:6 Performing Lab: Notes/Report: 6 glycohemoglobin 6.0% 5 - 6.5 % P-Comprehensive Metabolic Pa david (CMP) Reviewed date:06/19/2024 11:42:30 AM Interpretation:gluc 110 Performing Lab: Notes/Report: Test performed by [facility] , [address], [place] [address] Dagoberto Moe MD, Patient Service Coordinator CLIA: [id number] Sodium 140 135-145 mmol/L Potassium 4.6 3.5-5.3 mmol/L Chloride 104 97-108 mmol/L CO2 25 22-32 mmol/L Glucose 110 65-99 mg/dL BUN 14 8-23 mg/dL Creatinine 0.84 0.70-1.30 mg/dL Calcium 9.8 8.6-10.4 mg/dL eGFR by Creatinine 99 >59 mL/min/1.73m2 Protein 6.6 6.0-8.3 g/dL Albumin 4.5 3.5-5.3 g/dL Alkaline Phosphatase 88 40-129 IU/L ALT (SGPT) 21 <5-55 IU/L AST (SGOT) 18 <5-46 IU/L Bilirubin, Total 0.4 <0.2-1.2 mg/dL A/G Ratio 2.1 1.1-2.5 P-Lipid Panel Reviewed date:06/19/2024 11:42:30 AM Interpretation:trigs 255, hdl 36 Performing Lab: Notes/Report: Test performed by [facility], [address] , [address], [place] [address] Dagoberto Moe MD, Patient Service Coordinator CLIA: [id number] Cholesterol 126 <200 mg/dL Triglycerides 255 <150 mg/dL HDL Cholesterol 36 >39 mg/dL Cholesterol / HDL Ratio 3.50 0.00-4.99 Ratio Non-HDL Cholesterol 90 <130 mg/dL LDL Cholesterol (Calculation) 39 <130 mg/dL LDL Cholesterol Levels* Less than 100 mg/dL Optimal 100 to 129 mg/dL Near Optimal/ Above Optimal 130 to 159 mg/dL Borderline High 160 to 189 mg/dL High 190 mg/dL and above Very High * Categories as recommended by the 2004 ATPIII guidelines LDL/HDL Ratio 1.1 <3.3 Ratio LDL Cholesterol Patient History Test Date: 06/17/2023 LDL Results: 69 Units: mg/dL % Change: +1% Test Date: 12/19/2023 LDL Results: 53 Units: mg/dL % Change: -23% Test Date: 06/18/2024 LDL Results: 39 Units: mg/dL % Change: -26% P-Uric Acid Reviewed date:06/19/2024 11:42:30 AM Interpretation:Normal Performing Lab: Notes/Report: Test performed by [facility], [address] , [place] [address] Dagoberto Moe MD, Patient Service Coordinator CLIA: [id number] Uric Acid 4.8 3.4-8.0 mg/dL REASON FOR VISIT 6 mos checkup Medications Medication SIG (Take, Route, Frequency, Duration) Notes Start Date End Date Status MiraLax 17 GM/SCOOP as directed Orally Active Tylenol Extra Strength 500 MG 2 tab(s) orally every 6 hours Active Omeprazole 20 MG 1 cap(s) orally once a day Active Claritin 10 MG 1 tablet Orally Once a day; Duration: 30 day(s) Active Famotidine 20 MG 1 tab(s) orally once Active Losartan Potassium 50 MG 1 tablet Orally Once a day 12/20/2022 Active Lipitor 40 MG 1 tab(s) orally once a day (bedtime) Active Vital Signs Blood pressure systolic 120 mm Hg 06/18/20 24 Blood pressure diastolic 76 mm Hg 024 Heart Rate 76 /min 06/18/2024 Height 68 in 06/18/2024 Weight 183.2 lbs 06/18/2024 BMI 27.85 kg/m2 06/18/2024 Encounters Encounter Location Date Provider Diagnosis [facility] [address] [facility] [address] [place] [id number] 06/18/2024 Bhavik Saravia Primary hypertension I10 ; Mixed hyperlipidemia E78.2 ; Hypertriglyceridemia E78.1 ; Impaired fasting glucose R73.01 and Pain in toe of right foot M79.674 Assessments Encounter Date Diagnosis (ICD Code) Assessment Notes Treatment Notes Treatment Clinical Notes Section Notes 06/18/2024 Primary hypertension (ICD-10 - I10) 06/18/2024 Mixed hyperlipidemia (ICD-10 - E78.2) 06/18/2024 Hypertriglyceridemia (ICD-10 - E78.1) 06/18/2024 Impaired fasting glu cose (ICD-10 - R73.01) 06/18/2024 Pain in toe of right foot (ICD-10 - M79.674) Plan Of Treatment Medication Medication Name Sig Start Date Stop Date Notes Omeprazole 20 MG 1 cap(s) orally once a day Losartan Potassium 50 MG 1 tablet Orally Once a day 2022 Lipitor 40 MG 1 tab(s) orally once a day (bedtime) Next Appt Details Follow Up: 6 Months, Reason: Provider Name:Bhavik Bahena ry, 06/21/2025 09:15:00 AM, [address] [facility] [address] [facility], [address], [place], [id number], Progress Notes * LEE CHENDOB:1960 ([age] yo M)Acc No.[id number]:06/18/2024 Progress Notes Patient: LEE TRINIDAD Provider: Alexandra Saravia M.D. :1960 A ge:63 Y S ex:Male Date:06/18/2024 Address:[address] [id number] Subjective: * Chief Complaints: * 1 . 6 mos checkup. * HPI: C ardiology: 63 year old male presents with c/o Blood Pressure Elevated P t here for 6 mo f/u on hypertension, states he is doing well and does not have any concerns. c/o Hyperlipidemia P t is fasting today. * ROS: D ERMATOLOGY: no R heather. n o H angie. G ASTROENTEROLOGY: no N ausea. n o V omiting. M USCULOSKELETAL: Joint pain y es, o ccasionally has pain in his right great toe, worse at night, not with exertion, wonders if it could be gout. U ROLOGY: no D ifficulty urinating. n [...] cap(s) orally once a day , Taking Losartan Potassium 50 MG Tablet 1 tablet Orally Once a day , Taking Lipitor 40 MG Tablet 1 tab(s) orally once a day (bedtime) , Discontinued Ibuprofen 600 MG Tablet 1 tab(s) orally every 6 hours , Medication List reviewed and reconciled with the patient * Allergies: S ulfa Antibiotics. Objective: * Vitals: W t:183.2, Temp:97.8, BP:120/76, HR:76, Nurse:karson, Ht: 68, BMI:27.85. * Examination: C ardiology: General Appearance: p [...] fasting glucose - R73.01 5 . P ain in toe of right foot - M79.674 Plan: * Treatment: Value Reference Range A /G Ratio 2.1 1.1-2.5 - * A lbumin 4.5 3.5-5.3 - g/dL * A lkaline Phosphatase 88 40-129 - IU/L * A LT (SGPT) 21 <5-55 - IU/L * A ST (SGOT) 18 <5-46 - IU/L * B ilirubin, Total 0.4 <0.2-1.2 - mg/dL * B UN 14 8-23 - mg/dL * C alcium 9.8 8.6-10.4 - mg/dL * C hloride 104 97-108 - mmol/L * C O2 25 22-32 - mmol/L * C reatinine 0.84 0.70-1.30 - mg/dL * G lucose 110 H 65-99 - mg/dL * P otassium 4.6 3.5-5.3 - mmol/L * S odium 140 135-145 - mmol/L * P rotein 6.6 6.0-8.3 - g/dL * e GFR by Creatinine 99 >59 - mL/min/1.73m2 * Carine Bansal 06/19/2024 11:4 2:33 AM >See phone encounter 2.?Mixed hyperlipidemia? Continue Lipitor Tablet, 40 MG, 1 tab(s), orally, once a day (bedtime).?LAB: P-Comprehensive Metabolic Panel (CMP) (Collection Date & Time - 06/18/2024 08:36 AM)?gluc 110* Value Reference Range A /G Ratio 2.1 1.1-2.5 - * A lbumin 4.5 3.5-5.3 - g/dL * A lkaline Phosphatase 88 40-129 - IU/L * A LT (SGPT) 21 <5-55 - IU/L * A ST (SGOT) 18 <5-46 - IU/L * B ilirubin, Total 0.4 <0.2-1.2 - mg/dL * B UN 14 8-23 - mg/dL * C alcium 9.8 8.6-10.4 - mg/dL * C hloride 104 97-108 - mmol/L * C O2 25 22-32 - mmol/L * C reatinine 0.84 0.70-1.30 - mg/dL * G lucose 110 H 65-99 - mg/dL * P otassium 4.6 3.5-5.3 - mmol/L * S odium 140 135-145 - mmol/L * P rotein 6.6 6.0-8.3 - g/dL * e GFR by Creatinine 99 >59 - mL/min/1.73m2 * Carine Bansal 06/19/2024 11:4 2:33 AM >See phone encounter ?LAB: P-Lipid Panel (Collection Date & Time - 06/18/2024 08:36 AM)?trigs 255, hdl 36* Value Reference Range C holesterol / HDL Ratio 3.50 0.00-4.99 - Ratio * C holesterol 126 <200 - mg/dL * H DL Cholesterol 36 L >39 - mg/dL * L DL Cholesterol (Calculation) 39 <130 - mg/d L * L DL/HDL Ratio 1.1 <3.3 - Ratio * N on-HDL Cholesterol 90 <130 - mg/dL * T riglycerides 255 H <150 - mg/dL * Carine Bansal 06/19/2024 11:4 2:33 AM >See phone encounter 3.?Hypertriglyceridemia?LAB: P-Lipid Panel (Collection Date & Time - 06/18/2024 08:36 AM)?trigs 255, hdl 36* Value Reference Range C holesterol / HDL Ratio 3.50 0.00-4.99 - Ratio * C holesterol 126 <200 - mg/dL * H DL Cholesterol 36 L >39 - mg/dL * L DL Cholesterol (Calculation) 39 <130 - mg/d L * L DL/HDL Ratio 1.1 <3.3 - Ratio * N on-HDL Cholesterol 90 <130 - mg/dL * T riglycerides 255 H <150 - mg/dL * Carine Bansal 06/19/2024 11:4 2:33 AM >See phone encounter 4.?Impaired fasting glucose?LAB: Glucose (In-House) (Collection Date & Time - 06/18/2024)?138* Value Reference Range b lood glucose 138 74 - 106 mg/dL * Nydia Adair 06/18/2024 9: 55:49 AM > Carine Bansal 06/19/2024 11:42:33 AM >See phone encounter ?LAB: Glycohemoglobin A1c (in house) (Collection Date & Time - 06/18/2024)?6 * Value Reference Range g lycohemoglobin 6.0% 5 - 6.5 % * Nydia Adair 06/18/2024 9: 56:16 AM > Carine Bansal 06/19/2024 11:42:33 AM >See phone encounter 5.?Pain in toe of right foot?LAB: P-Uric Acid (Collection Date & Time - 06/18/2024 08:36 AM)?Normal* Value Reference Range U agata Acid 4.8 3.4-8.0 - mg/dL * Carine Bansal 06/19/2024 11:4 2:33 AM >See phone encounter 6.?Others? Continue Omeprazole Capsule Delayed Release, 20 MG, 1 cap(s), orally, once a day.?? * Procedure Codes: 8 2950 GLUCOSE TEST, 26990 GLYCATED HEMOGLOBIN TEST, Modifiers: QW * Follow Up: 6 Months * Images: Billing Information: * Visit Code: 21943 Office Visit, Est Pt., Level 4. * Procedure Codes: 29903 GLUCOSE TEST. 62526 GLYCATED HEMOGLOBIN TEST. Modifiers: QW * Electronic signature of Blanca Saravia MD on 12/24/2024 at 02:13 PM EDT Sign off status: Pending * Provider: Alexandra Saravia M.D. Date: 1 08/19/2023 Generated for Sherri ashley/Zulay/Roby on: 0 12/24/2024 02:13 PM EDT History and Physical Notes * HPI (History of Present Illness) Category Sub-Category Detail Notes Category Not es Cardiology Blood Pressure Elevated Pt here for 6 mo f/u on hypertension, states he is doing well and does not have any concerns Hyperlipidemia Pt is fasting today Examination Category Sub-Category Detail Notes Category Not es Cardiology Lungs: clear, no rales or wheezes Heart sounds: RRR, normal S1, S2 Extremities: no leg edema Peripheral pulses: 2 plus bilateral General Appearance: pleasant, NAD
--- OUTSIDE RECORDS SUMMARY | 2024-12-17 05:30 | XMS_ITS ---
Author Organization [facility] Address [address] [place] [id number] Care Team Providers Care Pizza Maker Name Role Phone Bhavik Saravia Primary Care Provider [phone] Allergies Allergen (clinical drug ingredient) Drug/Non Drug Allergy documented on EMR Reaction Allergy Type Onset Date Status Substance with sulfonamide structure and antibacterial mechanism of action (substance) Sulfa Antibiotics Unknown Drug Allergy Active Results Component Value Reference Range Notes Glucose (In-House) Reviewed date:12/21/2024 02:47:49 PM Interpretation:93 Performing Lab: Notes/Report: 93 blood glucose 93 74 - 106 mg/dL CBC Venipuncture (in house) Reviewed date:12/21/2024 02:47:49 PM Interpretation:Normal Performing Lab: Notes/Report: Normal wbc 6.3 3.5 - 10 lymph 29.4% 15 - 50 mid 5.8% 2 - 15 gran 64.8% 35 - 80 rbc 5.05 3.5 - 5.5 hgb 14.7 11.5 - 16.5 hct 44.7 35 - 55 mcv 88.5 75 - 100 mch 29.2 25 - 35 mchc 33.0 31 - 38 platlet 239 100 - 400 P-Comprehensive Metabolic Pa david (CMP) Reviewed date:12/21/2024 02:47:48 PM Interpretation:Normal Performing Lab: Notes/Report: Test performed by [facility], [place] [address] [place] [address] , [address], [place] [address] Dagoberto Moe MD, Insulation Technician CLIA: [id number] Sodium 139 135-145 mmol/L Potassium 4.5 3.5-5.3 mmol/L Chloride 102 97-108 mmol/L CO2 26 22-32 mmol/L Glucose 86 65-99 mg/dL BUN 13 8-23 mg/dL Creatinine 1.19 0.70-1.30 mg/dL Calcium 10.1 8.6-10.4 mg/dL eGFR by Creatinine 69 >59 mL/min/1.73m2 Protein 7.2 6.0-8.3 g/dL Albumin 4.8 3.5-5.3 g/dL Alkaline Phosphatase 52 40-129 IU/L ALT (SGPT) 33 <5-55 IU/L AST (SGOT) 24 <5-46 IU/L Bilirubin, Total 0.5 <0.2-1.2 mg/dL A/G Ratio 2.0 1.1-2.5 [facility] Reviewed date:12/21/2024 02:47:48 PM Interpretation:Normal Performing Lab: Notes/Report: Test performed by [facility] [address], [place] [address] Dagoberto Moe MD, Insulation Technician CLIA: [id number] Erythrocyte Sedimentation Rate (ESR), Automated 2 <21 mm/hr Rheumatoid Factor <10 <14.1 IU/mL C-Reactive Protein (CRP) 0.05 <0.50 mg/dL Antinuclear Antibodies (AILIN) Screen, Reflex AILIN 9 Panel Negative Negative This test is perform ed by Multiplex Bead Immunoassay methodology. Antinuclear Antibodies (AILIN) Result Note SEE COMMENT For positive Autoantibodies, please refer to the interpretive chart here: [email or web address] CCP Antibodies <0.5 <0.5-3.0 U/mL P-Hemoglobin A1C Reviewed date:12/21/2024 02:47:48 PM Interpretation:6.0 Performing Lab: Notes/Report: Test performed by [facility] [address] [place], [place] [address] [employer] [facility] [address], [place] [address] Dagoberto Moe MD, Insulation Technician CLIA: [id number] Hemoglobin A1C 6.0 <5.7 % The following HbA1c ranges recommended by the [place] [employer] (ADA) may be used as an aid in the diagnosis of diabetes mellitus. HbA1c Suggested Diagnosis >=6.5% Diabetic 5.7% - 6.4% Pre-Diabetic <5.7% Non-Diabetic P-Lipid Panel Reviewed date:12/21/2024 02:47:49 PM Interpretation:trigs 193, hdl 38, non-hdl 130 Performing Lab: Notes/Report: Test performed by [facility], [address] , [facility], [place] [address] Dagoberto Moe MD, Insulation Technician CLIA: [id number] Cholesterol 168 <200 mg/dL Triglycerides 193 <150 mg/dL HDL Cholesterol 38 >39 mg/dL Cholesterol / HDL Ratio 4.42 0.00-4.99 Ratio Non-HDL Cholesterol 130 <130 mg/dL LDL Cholesterol (Calculation) 91 <130 mg/dL LDL Cholesterol Levels* Less than 100 mg/dL Optimal 100 to 129 mg/dL Near Optimal/ Above Optimal 130 to 159 mg/dL Borderline High 160 to 189 mg/dL High 190 mg/dL and above Very High * Categories as recommended by the 2004 ATPIII guidelines LDL/HDL Ratio 2.4 <3.3 Ratio LDL Cholesterol Patient History Test Date: 12/19/2023 LDL Results: 53 Units: mg/dL % Change: -23% Test Date: 06/18/2024 LDL Results: 39 Units: mg/dL % Change: -26% Test Date: 12/17/2024 LDL Results: 91 Units: mg/dL % Change: +133% P-PSA Reviewed date:12/21/2024 02:47:49 PM Interpretation:Normal Performing Lab: Notes/Report: Test performed by [facility] [address] , [place] [address] Dagoberto Moe MD, Insulation Technician CLIA: [id number] PSA 0.91 <4.00 ng/mL Please note this is an ultrasensitive PSA assay with a lower limit of detection of 0.014 ng/mL. This test is performed by the Michael ECLIA methodology. Values obtained with different assay methods or kits cannot be directly compared. P-TSH reflex to FT4 Reviewed date:12/21/2024 02:47:49 PM Interpretation:Normal Performing Lab: Notes/Report: Test performed by [facility] [address] [place] [address] , [place] [address] Dagoberto Moe MD, Insulation Technician CLIA: [id number] TSH reflex to FT4 1.36 0.43-5.25 mU/L P-Microalbumin/Creatinine, R andom Urine Sample Reviewed date:12/21/2024 02:47:49 PM Interpretation:Normal Performing Lab: Notes/Report: Test performed by [facility] [address] [place] [address] , [address], [place] [address] Dagoberto Moe MD, Insulation Technician CLIA: [id number] Albumin/Creatinine Ratio, Urine <6.27 0-30 ug/mg Microalbumin, Urine, Random <0.3 Creatinine, Urine 47.8 Estimated Average Glucose Reviewed date:12/21/2024 02:47:49 PM Interpretation:Normal Performing Lab: Notes/Report: Test performed by [facility] [address] [place] [address] , [address], [place] [address] Dagoberto Moe MD, Insulation Technician CLIA: [id number] Estimated Average Glucose (eAG) 125 Estimated Average Glucose (eAG) is calculated using the equation eAG = (28.7 x HbA1c) - 46.7 based on the guidelines established by the ADA. If the patient has certain diseases including kidney disease, sickle cell anemia, thalassemia, or is taking medications such as dapsone, erythropoietin, or iron, eAG should not be evaluated. REASON FOR VISIT 6 months Medications Medication SIG (Take, Route, Frequency, Duration) Notes Start Date End Date Status Tylenol Extra Strength 500 MG 2 tab(s) orally every 6 hours Active MiraLax 17 GM/SCOOP as directed Orally Active Famotidine 20 MG 1 tab(s) orally once Active Claritin 10 MG 1 tablet Orally Once a day; Duration: 30 day(s) Active Fenofibrate 160 MG 1 tablet Orally Once a day; Duration: 90 days 06/19/2024 Active Omeprazole 20 MG 1 cap(s) orally once a day Active Losartan Potassium 50 mg TAKE ONE TABLET BY MOUTH EVERY DAY; Duration: 90 Active Problems Problem Type SNOMED Code ICD Code Onset Dates Problem Status W/U Status Risk Notes Problem Polyarthritis (M13.0) Active confirmed Vital Signs Blood pressure systolic 132 mm Hg 12/18/19 25 Blood pressure diastolic 74 mm Hg 025 Heart Rate 66 /min 12/17/2024 Height 68 in 12/17/2024 Weight 176 lbs 12/17/2024 BMI 26.76 kg/m2 12/17/2024 Encounters Encounter Location Date Provider Diagnosis [facility] [address] [place], [place] [id number] 12/17/2024 Bhavik Amity Primary hypertension I10 ; Mixed hyperlipidemia E78.2 ; Hypertriglyceridemia E78.1 ; Impaired fasting glucose R73.01 ; Polyarthritis M13.0 and Screening for prostate cancer Z12.5 Assessments Encounter Date Diagnosis (ICD Code) Assessment Notes Treatment Notes Treatment Clinical Notes Section Notes 12/17/2024 Primary hypertension (ICD-10 - I10) 12/17/2024 Mixed hyperlipidemia (ICD-10 - E78.2) 12/17/2024 Hypertriglyceridemia (ICD-10 - E78.1) 12/17/2024 Impaired fasting glu cose (ICD-10 - R73.01) 12/17/2024 Polyarthritis (ICD-1 0 - M13.0) 12/17/2024 Screening for prosta te cancer (ICD-10 - Z12.5) Plan Of Treatment Pending Test Test Name Order Date X ray : Hands, bilateral 12/17/2024 Next Appt Details Follow Up: 6 Months, Reason: Provider Name:Bhavik silva, 06/21/2025 09:15:00 AM, [address], [address], [place], [id number], Progress Notes * LEE CHENDOB:1960 ([age] yo M)Acc No.[id number]:12/17/2024 Progress Notes Patient: LEE TRINIDAD Provider: Alexandra Saravia M.D. :1960 A ge:64 Y S ex:Male Date:12/17/2024 Address:[address] [place] [address] [address] [place], [id number] Subjective: * Chief Complaints: * 1 . 6 months. * HPI: C ardiology: 64 year old male presents with c/o Blood Pressure Elevated P t here for 6 mo f/u on hypertension. c/o Hyperlipidemia P t is fasting today. D ermatology: c/o knot P t complains of tender knot on palm of rt hand.? R heumatology: c/o joint pain P t complains of multiple joint pain and is concerned he may have arthritis. Pt states it is painful to bend fingers and grasp things. * ROS: D ERMATOLOGY: no R heather. [...] ather: , lung CA. M other: alive 82 yrs. P aternal Grand Father: , blot clot. P aternal Grand Mother: alive. M aternal Grand Father: . M aternal Grand Mother: . P aternal uncle: [place]. S iblings: diagnosed with Cancer. 2 brother(s) - healthy. 3 son(s) - healthy. . * Social History: C URRENT TOBACCO USE: No . C affeine: yes, frequency:daily-soda. Exercise: yes, walks. [...] cap(s) orally once a day , Taking Fenofibrate 160 MG Tablet 1 tablet Orally Once a day , Taking Losartan Potassium 50 mg Tablet TAKE ONE TABLET BY MOUTH EVERY DAY , Discontinued Atorvastatin Calcium 40 mg Tablet TAKE ONE TABLET BY MOUTH AT BEDTIME , Medication List reviewed and reconciled with the patient * Allergies: S ulfa Antibiotics. Objective: * Vitals: W t: 176, Temp: 97.8, BP: 132/74, HR: 66, Nurse: karson/rosi, Ht: 68, BMI:26.76. * Examination: C ardiology: General Appearance: p [...] fasting glucose - R73.01 5 . P olyarthritis - M13.0 6 . S creening for prostate cancer - Z12.5 Plan: * Treatment: Value Reference Range A /G Ratio 2.0 1.1-2.5 - * A lbumin 4.8 3.5-5.3 - g/dL * A lkaline Phosphatase 52 40-129 - IU/L * A LT (SGPT) 33 <5-55 - IU/L * A ST (SGOT) 24 <5-46 - IU/L * B ilirubin, Total 0.5 <0.2-1.2 - mg/dL * B UN 13 8-23 - mg/dL * C alcium 10.1 8.6-10.4 - mg/dL * C hloride 102 97-108 - mmol/L * C O2 26 22-32 - mmol/L * C reatinine 1.19 0.70-1.30 - mg/dL * G lucose 86 65-99 - mg/dL * P otassium 4.5 3.5-5.3 - mmol/L * S odium 139 135-145 - mmol/L * P rotein 7.2 6.0-8.3 - g/dL * e GFR by Creatinine 69 >59 - mL/min/1.73m2 * Nohemy Ackerman 12/21/2024 02: 47:39 PM EDT > See phone encounter ?LAB: P-Microalbumin/Creatinine, Random Urine Sample (Collection Date & Time - 12/17/2024 12:22 PM)?Normal* Value Reference Range A lbumin/Creatinine Ratio, Urine <6.27 0-30 - ug /mg * C reatinine, Urine 47.8 - mg/dL * M icroalbumin, Urine, Random <0.3 - mg/dL * Nohemy Ackerman 12/21/2024 02: 47:39 PM EDT > See phone encounter 2.?Mixed hyperlipidemia?LAB: P-Comprehensive Metabolic Panel (CMP) (Collection Date & Time - 12/17/2024 12:22 PM)?Normal* Value Reference Range A /G Ratio 2.0 1.1-2.5 - * A lbumin 4.8 3.5-5.3 - g/dL * A lkaline Phosphatase 52 40-129 - IU/L * A LT (SGPT) 33 <5-55 - IU/L * A ST (SGOT) 24 <5-46 - IU/L * B ilirubin, Total 0.5 <0.2-1.2 - mg/dL * B UN 13 8-23 - mg/dL * C alcium 10.1 8.6-10.4 - mg/dL * C hloride 102 97-108 - mmol/L * C O2 26 22-32 - mmol/L * C reatinine 1.19 0.70-1.30 - mg/dL * G lucose 86 65-99 - mg/dL * P otassium 4.5 3.5-5.3 - mmol/L * S odium 139 135-145 - mmol/L * P rotein 7.2 6.0-8.3 - g/dL * e GFR by Creatinine 69 >59 - mL/min/1.73m2 * Nohemy Ackerman 12/21/2024 02: 47:39 PM EDT > See phone encounter ?LAB: P-Lipid Panel (Collection Date & Time - 12/17/2024 12:22 PM)?trigs 193, hdl 38, non-hdl 130* Value Reference Range C holesterol / HDL Ratio 4.42 0.00-4.99 - Ratio * C holesterol 168 <200 - mg/dL * H DL Cholesterol 38 L >39 - mg/dL * L DL Cholesterol (Calculation) 91 <130 - mg/d L * L DL/HDL Ratio 2.4 <3.3 - Ratio * N on-HDL Cholesterol 130 H <130 - mg/dL * T riglycerides 193 H <150 - mg/dL * Nohemy Ackerman 12/21/2024 02: 47:39 PM EDT > See phone encounter ?LAB: P-TSH reflex to FT4 (Collection Date & Time - 12/17/2024 12:22 PM)? Normal* Value Reference Range T SH reflex to FT4 1.36 0.43-5.25 - mU/L * Nohemy Ackerman 12/21/2024 02: 47:39 PM EDT > See phone encounter 3.?Impaired fasting glucose?LAB: P-Hemoglobin A1C (Collection Date & Time - 12/17/2024 12:22 PM)?6.0* Value Reference Range H emoglobin A1C 6.0 H <5.7 - % * Nohemy Ackerman 12/21/2024 02: 47:39 PM EDT > See phone encounter ?LAB: Glucose (In-House) (Collection Date & Time - 12/17/2024)?93* Value Reference Range b lood glucose 93 74 - 106 mg/dL * Rubia Verdugo 12/17/2024 12:34: 31 PM EDT > Nohemy Ackerman 12/21/2024 02:47:39 PM EDT > See phone encounter 4.?Polyarthritis?LAB: P-Arthritis Panel, PathGroup (Collection Date & Time - 12/17/2024 12:22 PM)?Normal* Value Reference Range A ntinuclear Antibodies (AILIN) Result Note SEE COMMENT - * A ntinuclear Antibodies (AILIN) Screen, Reflex AILIN 9 Panel Negative Negative - * C CP Antibodies <0.5 <0.5-3.0 - U/mL * C -Reactive Protein (CRP) 0.05 <0.50 - mg/dL * E rythrocyte Sedimentation Rate (ESR), Automated 2 <21 - mm/hr * R heumatoid Factor <10 <14.1 - IU/mL * Nohemy Ackerman 12/21/2024 02: 47:39 PM EDT > See phone encounter ?LAB: CBC Venipuncture (in house) (Collection Date & Time - 12/17/2024)? Normal* Value Reference Range w bc 6.3 3.5 - 10 * l ymph 29.4% 15 - 50 * m id 5.8% 2 - 15 * g ran 64.8% 35 - 80 * r bc 5.05 3.5 - 5.5 * h gb 14.7 11.5 - 16.5 * h ct 44.7 35 - 55 * m cv 88.5 75 - 100 * m ch 29.2 25 - 35 * m chc 33.0 31 - 38 * p latlet 239 100 - 400 * Rubia Verdugo 12/17/2024 12:36: 18 PM EDT > Nohemy Ackerman 12/21/2024 02:47:39 PM EDT > See phone encounter ?Imaging: X ray : Hands, bilateral5.?Screening for prostate cancer?LAB: P-PSA (Collection Date & Time - 12/17/2024 12:22 PM)?Normal* Value Reference Range P SA 0.91 <4.00 - ng/mL * Meka Nohemy 12/21/2024 02: 47:39 PM EDT > See phone encounter * Labs: * L ab: Estimated Average Glucose (Collection Date & Time - 12/17/2024 12:22 PM) N ormal Value Reference Range E stimated Average Glucose 125 - mg/dL * [facility], IT support 12/18/2024 03:00:09 : This order was created by the Interface. Meka Nohemy 12/21/2024 02:47:39 PM EDT > See phone encounter * Procedure Codes: 8 2950 GLUCOSE TEST, 61154 CBC WITH AUTO DIFF * Follow Up: 6 Months * Images: Billing Information: * Visit Code: 36727 Office Visit, Est Pt., Level 4. * Procedure Codes: 26411 GLUCOSE TEST. 55635 CBC WITH AUTO DIFF. * Electronic signature of Blanca Saravia MD on 12/24/2024 at 02:13 PM EDT Sign off status: Pending * Provider: Alexandra Saravia M.D. Date: 0 12/17/2024 Generated for Sherri ashley/Zulay/eTransmitting on: 0 12/24/2024 02:13 PM EDT History and Physical Notes * HPI (History of Present Illness) Category Sub-Category Detail Notes Category Not es Dermatology knot Pt complains of tender knot on palm of rt hand Cardiology Blood Pressure Elevated Pt here for 6 mo f/u on hypertension Hyperlipidemia Pt is fasting today Rheumatology joint pain Pt complains of multiple joint pain and is concerned he may have arthritis. Pt states it is painful to bend fingers and grasp things Examination Category Sub-Category Detail Notes Category Not es Cardiology Lungs: clear, no rales or wheezes Heart sounds: RRR, normal S1, S2 Extremities: no leg edema Peripheral pulses: 2 plus bilateral General Appearance: pleasant, NAD
--- NOTE | 2024-12-24 14:13 | XR_ITS ---
FINAL REPORT CLINICAL HISTORY: hand pain FINDINGS: Three views show no evidence of acute displaced fracture or dislocation of the visualized bony architecture. There are moderate degenerative changes of the first interphalangeal joint and first metacarpal phalangeal joint. There are mild degenerative changes of the 2nd and 3rd DIP joints. The bones are osteopenic. IMPRESSION: Degenerative changes as above. Reviewed, Interpreted and Dictated by Dionisio Lozoya MD Transcribed by Bea Montenegro Authenticated and [facility]
--- NOTE | 2024-12-24 14:13 | XR_ITS ---
FINAL REPORT CLINICAL HISTORY: hand pain FINDINGS: Three views show no evidence of acute displaced fracture or dislocation of the visualized bony architecture. There are moderate degenerative changes of the first interphalangeal joint and first metacarpal phalangeal joint. Remaining joint spaces are well-maintained. The bones are osteopenic. IMPRESSION: Degenerative changes as above. Reviewed, Interpreted and Dictated by Dionisio Lozoya MD Transcribed by Bea Montenegro Authenticated and [facility]
--- OUTSIDE RECORDS SUMMARY | 2024-12-24 14:13 | XMS_ITS | Patient Health Record ---
Author Organization [facility] Address [address] [place] [id number] Care Team Providers Care Wrecking Supervisor Name Role Phone Bhavik Saravia Primary Care Provider [phone] Allergies Allergen (clinical drug ingredient) Drug/Non Drug [...] 110 Performing Lab: Notes/Report: Test performed by [facility] [address] [place] [address] , [address], [place] [address] Dagoberto Moe MD, Assistant Front End Manager CLIA: [id number] Sodium 140 135-145 mmol/L Potassium 4.6 3.5-5.3 [...] 36 Performing Lab: Notes/Report: Test performed by [facility], [address] , [address], [place] [address] Dagoberto Moe MD, Assistant Front End Manager CLIA: [id number] Cholesterol 126 <200 mg/dL Triglycerides 255 <150 [...] Interpretation:Normal Performing Lab: Notes/Report: Test performed by [facility], [address] , [place] [address] Dagoberto Moe MD, Assistant Front End Manager CLIA: [id number] Uric Acid 4.8 3.4-8.0 mg/dL Glucose (In-House) Reviewed date:12/21/2024 02:47:49 PM Interpretation:93 [...] Interpretation:Normal Performing Lab: Notes/Report: Test performed by [facility] [address] [place] [address] , [address], [place] [address] Dagoberto Moe MD, Assistant Front End Manager CLIA: [id number] Sodium 139 135-145 mmol/L Potassium 4.5 3.5-5.3 [...] mg/dL A/G Ratio 2.0 1.1-2.5 [facility]th[facility] Panel, [facility] Reviewed date:12/21/2024 02:47:48 PM Interpretation:Normal Performing Lab: Notes/Report: Test performed by [facility] [address] [place] [address] [address], [place] [address] Dagoberto Moe MD, Assistant Front End Manager CLIA: [id number] Erythrocyte Sedimentation Rate (ESR), Automated 2 <21 mm/hr Rheumatoid Factor <10 <14.1 IU/mL C-Reactive Protein (CRP) 0.05 <0.50 mg/dL Antinuclear Antibodies (AILIN) Screen, Reflex AILIN 9 Panel Negative Negative This test is performed by Multiplex Bead Immunoassay methodology. Antinuclear Antibodies (AILIN) Result Note SEE COMMENT For positive Autoantibodies, please refer to the interpretive chart here: [email or web address] CCP Antibodies <0.5 <0.5-3.0 U/mL P-Hemoglobin A1C Reviewed date:12/21/2024 02:47:48 PM Interpretation:6.0 Performing Lab: Notes/Report: Test performed by [facility] [address] [place], [place] [address] [place] [address], [place] [address] Dagoberto Moe MD, Assistant Front End Manager CLIA: [id number] Hemoglobin A1C 6.0 <5.7 % The following HbA1c ranges recommended by the [place] [employer] (ADA) may be used as an aid in the diagnosis of diabetes mellitus. HbA1c Suggested Diagnosis >=6.5% Diabetic 5.7% - 6.4% Pre-Diabetic <5.7% Non-Diabetic P-Lipid Panel Reviewed date:12/21/2024 02:47:49 PM Interpretation:trigs 193, hdl 38, non-hdl 130 Performing Lab: Notes/Report: Test performed by [facility] [address] [place], [place] [address] [place] [address], [place] [address] Dagoberto Moe MD, Assistant Front End Manager CLIA: [id number] Cholesterol 168 <200 mg/dL Triglycerides 193 <150 [...] Interpretation:Normal Performing Lab: Notes/Report: Test performed by [facility] [address] [place] [address] [facility] [place] [address] Dagoberto Moe MD, Assistant Front End Manager CLIA: [id number] PSA 0.91 <4.00 ng/mL Please note this is an ultrasensitive PSA assay with a lower limit of detection of 0.014 ng/mL. This test is performed by the Michael ECLIA methodology. Values obtained with different assay methods or kits cannot be directly compared. P-TSH reflex to FT4 Reviewed date:12/21/2024 02:47:49 PM Interpretation:Normal Performing Lab: Notes/Report: Test performed by [facility] [address] [place] [address] [place] [address] Dagoberto Moe MD, Assistant Front End Manager CLIA: [id number] TSH reflex to FT4 1.36 0.43-5.25 mU/L P-Microalbumin/Creatinine, R andom Urine Sample Reviewed date:12/21/2024 02:47:49 PM Interpretation:Normal Performing Lab: Notes/Report: Test performed by [facility], [address] , [address], [place] [address] Dagoberto Moe MD, Assistant Front End Manager CLIA: [id number] Albumin/Creatinine Ratio, Urine <6.27 0-30 ug/mg Microalbumin, Urine, Random <0.3 Creatinine, Urine 47.8 Estimated Average Glucose Reviewed date:12/21/2024 02:47:49 PM Interpretation:Normal Performing Lab: Notes/Report: Test performed by [facility], [employer] [address] [place] [address] , [address], [place] [address] Dagoberto Moe MD, Assistant Front End Manager CLIA: [id number] Estimated Average Glucose (eAG) 125 Estimated Average Glucose (eAG) is calculated using the equation eAG = (28.7 x HbA1c) - 46.7 based on the guidelines established by the ADA. If the patient has certain diseases including kidney disease, sickle cell anemia, thalassemia, or is taking medications such as dapsone, erythropoietin, or iron, eAG should not be evaluated. Medications Medication SIG (Take, Route, Frequency, Duration) Notes Start Date End Date Status Fenofibrate 160 MG 1 tablet Orally Once a day; Duration: 90 days 06/19/2024 Active Tylenol Extra Strength 500 MG 2 tab(s) orally every 6 hours Active MiraLax 17 GM/SCOOP as directed Orally Active Omeprazole 20 MG 1 cap(s) orally once a day Active Famotidine 20 MG 1 tab(s) orally once Active Claritin 10 MG 1 tablet Orally Once a day; Duration: 30 day(s) Active Losartan Potassium 50 mg TAKE ONE TABLET BY MOUTH EVERY DAY; Duration: 90 Active Immunizations Vaccine Route Administration Date Status Comme nts Tetanus Tdap-Adacel (over 7yrs) IM Intramuscular 11/25/2019 Administered Hepatitis A (adult) Unknown 11/07/2018 Administered Fluzone Quad (6months&older) IM Intramuscular 05/12/2019 Administered Fluzone Quad (6months&older) Unknown 04/27/2020 Administered Fluzone Quad (6months&older) IM Intramuscular 06/17/2023 Administered COVID 19 Moderna Unknown 03/22/2021 Administered Problems Problem Type SNOMED Code ICD Code Onset Dates Problem Status W/U Status Risk Notes Problem Hypertriglyceridemia (784484751) Hypertriglyceridemia (E78.1) Active confirmed Problem Impaired fasting glucose (253822811) Impaired fasting glucose (R73.01) Active confirmed Problem Mixed hyperlipidemia (354946763) Mixed hyperlipidemia (E78.2) Active confirmed Problem Polyarthritis (139754762) Polyarthritis (M13.0) Active confirmed Problem Acute sinusitis (45652844) Acute non-recurrent sinusitis, unspecified location (J01.90) Active confirmed Problem Hearing loss (03062010) Bilateral hearing loss, unspecified hearing loss type (H91.93) Active confirmed Problem Primary hypertension (84564639) Primary hypertension (I10) Active confirmed Vital Signs Heart Rate 66 /min 12/17/2024 Blood pressure diastolic 74 mm Hg 12/17/2024 Height 68 in 12/17/2024 Blood pressure systolic 132 mm Hg 12/17/2024 Weight 176 lbs 12/17/2024 BMI 26.76 kg/m2 12/17/2024 Encounters Encounter Location Date Provider Diagnosis [facility] [address] [place] [id number] 06/18/2024 Hbavik [place] Primary hypertension I10 ; Mixed hyperlipidemia E78.2 ; Hypertriglyceridemia E78.1 ; Impaired fasting glucose R73.01 and Pain in toe of right foot M79.674 [facility] [address] [facility] [address] [place] [id number] 12/17/2024 Bhavik [place] Primary hypertension I10 ; Mixed hyperlipidemia E78.2 ; Hypertriglyceridemia E78.1 ; Impaired fasting glucose R73.01 ; Polyarthritis M13.0 and Screening for prostate cancer Z12.5 [facility] [address] [place], [place] [id number] 06/19/2024 Bhavik [place] [facility] [address] [place] [id number] 12/21/2024 Bhavik [place] Assessments Encounter Date Diagnosis (ICD Code) Assessment Notes Treatment Notes Treatment Clinical Notes Section Notes 06/18/2024 Mixed hyperlipidemia (ICD-10 - E78.2) 06/18/2024 Primary hypertension (ICD-10 - I10) 12/17/2024 Mixed hyperlipidemia (ICD-10 - E78.2) 12/17/2024 Primary hypertension (ICD-10 - I10) 12/17/2024 Hypertriglyceridemia (ICD-10 - E78.1) 06/18/2024 Hypertriglyceridemia (ICD-10 - E78.1) 06/18/2024 Impaired fasting glu cose (ICD-10 - R73.01) 12/17/2024 Impaired fasting glu cose (ICD-10 - R73.01) 06/18/2024 Pain in toe of right foot (ICD-10 - M79.674) 12/17/2024 Polyarthritis (ICD-1 0 - M13.0) 12/17/2024 Screening for prosta te cancer (ICD-10 - Z12.5) Plan Of Treatment Pending Test Test Name Order Date X ray : Hands, bilateral 12/17/2024 Next Appt Details Provider Name:Bhavik Bahena ry, 06/21/2025 09:15:00 AM, [address], [address], [place], [place], [id number], Insurance Providers Payer Name Payer Address Payer Phone Subscriber Number Group Number Insured Name Patient Relationship to Insured Coverage Start Date Coverage End Date [employer] [address] [place] [address] [id number] LEE CHEN Self - patient is the insured Medical (General) History Medical History History ICD Code Hyperlipidemia Hypertriglyceridemia Prostatitis Diverticulosis Diverticulitis Constipation Impaired Fasting Glucose Surgical History Surgery Date(Month/Year) Tonsillectomy 1969 LT Eye 1973 Bilateral Lasik Eye 2000 Hemicolectomy secondary to diverticular disease of colon 2010 Colonoscopy 2018 Hospitalization History Reason Date(Month/Year)
== END 2024-12-24 23:59 | disposition home or self-care (01) ==
LOC: RAD 14:11
PROVIDERS: PCP Family Medicine; Visit Provider Family Medicine
DX: M19.042 Primary osteoarthritis, left hand (principal); M19.041 Primary osteoarthritis, right hand
CPT/HCPCS: 73130